=== PATIENT | female | born 1935 | race Caucasian/White ===

== ENCOUNTER 2019-11-24 20:24 | Inpatient (IN) | payer OTHER, BC ==
--- NOTE | 2019-11-24 20:32 | PDOC ---
History of Present Illness - General Stated Complaint: LETHARGIC - History of Present Illness Initial Comments: The pt is an 84F w/ a history of HTN and GERD who presents for evaluation of 1 day of aches, generalized weakness, s/p syncopal fall, pt was down for approximately 10-20 minutes. The pt currently reports epigastric abdominal bloating that has been persistent throughout the day today with associated nausea w/o vomiting. She denies ACE, vomiting, neck pain. Denies fevers, sick contacts, chest pain, trouble breathing, vision changes, changes in sensation, dysuria, or blood in her stool. Per the family at bedside, the pt is lethargic appearing and slow to answer relative to her baseline. 11/24/19 21:17 Past History - Past Medical History Allergies/Adverse Reactions: Allergies Allergy/AdvReac Type Severity Reaction Status Date / Time Penicillins Allergy Unknown Verified 11/24/19 22:00 meperidine HCl [From Demerol] AdvReac Unknown Verified 11/24/19 22:00 Home Medications: Ambulatory Orders Rosuvastatin [Crestor -] 20 mg PO Q48H #30 tablet 01/28/19 Amlodipine Besylate/Benazepril [Amlodipine-Benazepril 5-20 mg] 10 - 20 each PO DAILY 11/24/19 Fluticasone Propionate [Flovent Diskus] 50 mcg IH DAILY 11/24/19 Anemia: No Asthma: No Cancer: No Cardiac Disorders: No CVA: No COPD: No CHF: No Dementia: No Diabetes: No GI Disorders: Yes (GERD) Disorders: No HTN: Yes (NOT ON MEDICATION) Hypercholesterolemia: Yes Liver Disease: No Seizures: No Thyroid Disease: No - Surgical History Abdominal Surgery: No Appendectomy: No Cardiac Surgery: No Cholecystectomy: No Lung Surgery: No Neurologic Surgery: No Orthopedic Surgery: Yes (CARPAL TUNNEL RELEASE RIGHT HAND 2013) - Psycho Social/Smoking Cessation Hx Smoking Status: Yes Smoking History: Current every day smoker Number of Cigarettes Smoked Daily: 4 Hx Alcohol Use: Yes (WINE WITH DINNER) Drug/Substance Use Hx: No Substance Use Type: Alcohol Hx Substance Use Treatment: No Review of Systems - Review of Systems Able to Perform ROS?: Yes Comments:: GENERAL/CONSTITUTIONAL: +fatigue/generalized weakness HEAD, EYES, EARS, NOSE AND THROAT: No change in vision. No change in hearing. No sore throat CARDIOVASCULAR: No chest pain or shortness of breath RESPIRATORY: +cough; Denies hemoptysis GASTROINTESTINAL: +nausea; denies vomiting, diarrhea or constipation GENITOURINARY: No dysuria, frequency, or change in urination MUSCULOSKELETAL: +myalgias; No joint or pain. No neck or back pain SKIN: No rash NEUROLOGIC: No headache, vertigo, or change in strength/sensation ENDOCRINE: No increased thirst. No abnormal weight change HEMATOLOGIC/LYMPHATIC: No anemia, easy bleeding, or history of blood clots ALLERGIC/IMMUNOLOGIC: No hives or skin allergy 11/24/19 20:32 Is the patient limited Setswana proficient: No *Physical Exam - Vital Signs Initial Vital Signs Temp Pulse Resp BP Pulse Ox 96.4 F L 99 H 20 163/70 95 11/24/19 20:35 11/24/19 20:35 11/24/19 20:35 11/24/19 20:35 11/24/19 20:35 11/24/19 21:22 - Physical Exam GENERAL: Awake, alert, and oriented to person/place/time, tired appearing HEAD: No signs of trauma, normocephalic, atraumatic EYES: PERRLA, EOMI, sclera anicteric, conjunctiva clear ENT: Hearing grossly normal, nares patent, oropharynx clear without exudates. Moist mucosa LUNGS: No distress, speaks in full sentences, clear to auscultation bilaterally HEART: Regular rate and rhythm, normal S1 and S2, no murmurs appreciated, peripheral pulses normal and equal bilaterally ABDOMEN: Soft, epigastric TTP w/o rebound/guarding; normoactive bowel sounds EXTREMITIES: Normal inspection, Normal range of motion, no edema. No clubbing or cyanosis NEUROLOGICAL: Cranial nerves II through XII grossly intact. Normal speech, no focal sensorimotor deficits SKIN: Warm, diaphoretic 11/24/19 20:32 ED Treatment Course - LABORATORY CBC & Chemistry Diagram: 11/24/19 21:05 11/24/19 21:05 - RADIOLOGY Radiograph Interpretation: THIS IS A PRELIMINARY REPORT FROM [facility] [employer]PERATOR DATE OF SERVICE: 2019-11-24 22:31:06 EXAM: HEAD CT WITHOUT CONTRAST FINDINGS: There is no intra or extra-axial hemorrhage. Slightly hyperdense mass in the anterior paramedian right frontal lobe containing dystrophic calcifications measuring 2.2 x 2.4 cm axially and 2.5 cm in craniocaudal dimension with vasogenic edema in the frontal lobe deep white matter. This may be a meningioma. Suggest further evaluation with contrast- enhanced MRI No midline shift. Normal jones white matter differentiation. Mild prominence of the cortical sulci compatible with mild atrophy. The ventricles are not enlarged. There is mild effacement of the anterior horn of the right lateral ventricle The calvarium is intact Mucoperiosteal thickening in the maxillary sinuses with small bilateral retention cysts or polyps. The remaining visualized paranasal sinuses and mastoid air cells are clear. THIS IS A PRELIMINARY REPORT FROM [facility] [employer] OPERATOR DATE OF SERVICE: 2019-11-24 22:36:30 EXAM: ABDOMEN \T\ PELVIS CT WITH CONTR FINDINGS: There is a lobulated nodule in the right middle lobe measuring 1.5 cm concerning for malignancy. Fleischner Society guidelines advise 3 month follow-up CT and/or further evaluation with PET/CT or biopsy. There is moderate associated groundglass density extending toward the hilum Subsegmental and dependent atelectasis at the right lung base The heart is upper limits of normal size to mildly enlarged The liver is enlarged measuring 22 cm in craniocaudal dimension with mild fatty changes and more pronounced fatty infiltration in the left lobe along the fissure for the falciform ligament Multiple stones in the gallbladder fundus with thickening of the gallbladder wall. No obvious pericholecystic edema. Images are degraded by motion. Consider further evaluation with ultrasound The spleen, pancreas and right adrenal gland are unremarkable Left adrenal nodule measuring 2.2 cm. Attenuation measurements in the presence of contrast are not compatible with an adenoma. Consider further evaluation with MRI Mild hydronephrosis in the right kidney with no evidence of an obstructing ureteral stone Subcentimeter cortical hypodensity in the left kidney, likely a cyst Small umbilical hernia containing fat No bowel distention or appreciable thickening allowing for lack of enteric contrast. Normal appendix Colonic diverticulosis predominantly left colon without evidence of acute diverticulitis 1.9 cm left ovarian cyst as well as a slightly larger hypodense lesion, possibly cystic measuring 2.9 cm. Suggest further evaluation with ultrasound No intra-abdominal free air, free fluid or loculated collections Sclerotic lesion in the right femoral head may be a large bone island. Cannot exclude a blastic metastatic lesion in the setting of malignancy. Consider further evaluation with bone scan 11/24/19 23:06 THIS IS A PRELIMINARY REPORT FROM [employer] [employer] OPERATOR DATE OF SERVICE: 2019-11-25 01:12:27 EXAM: ABDOMEN US -LIMITED right upper quadrant and limited abdominal duplex FINDINGS: Right upper quadrant ultrasound: The liver is fatty and enlarged at 20.8 cm, without mass or biliary duct dilation. The gallbladder contained stones and there is wall thickening of the 6 mm. No pericholecystic fluid. Findings are moderately suspicious for cholecystitis.. The CBD is not dilated and measures4 millimeters in diameter. Right kidney measures 9.5centimeters in length and is unremarkable. The visualized aorta and IVC are normal. Pancreas is partially obscured, but appears normal. 11/25/19 03:09 Medical Decision Making - Medical Decision Making The pt is an 84F w/ a history of HTN and GERD who presents for evaluation of 1 day of aches, generalized weakness, s/p syncopal fall, pt was down for approximately 10-20 minutes. Ddx: syncope; influenza, sepsis, dehydration, intracranial pathology ED Course Labs sent Influenza ECG CXR CT head and c-spine Ofirmev, Zofran, and IVF for symptomatic relief 11/24/19 21:32 No leukocytosis No anemia Lytes unremarkable No SUSANNAH LFTs unremarkable Trop I neg UA w/ evidence of UTI Findings of CT scans discussed with patient Will obtain a RUQ US given gallbladder/liver findings Will treat with cipro/flagyl given CT findings and UTI Pt signed out to [facility] US w/ evidence of cholecysitis, consult order placed to Dr. Power and microblog sent to [facility] admitting with the update 11/25/19 03:10 Discharge - Discharge Information Problems reviewed: Yes Clinical Impression/Diagnosis: Cholecystitis UTI (urinary tract infection) Qualifiers: Urinary tract infection type: acute cystitis Hematuria presence: without hematuria Qualified Code(s): N30.00 - Acute cystitis without hematuria Syncope Qualifiers: Syncope type: unspecified Qualified Code(s): R55 - Syncope and collapse Condition: Fair - Admission Yes - Follow up/Referral - Patient Discharge Instructions - Post Discharge Activity
[2019-11-24] MEDS ORDERED: ACETAMINOPHEN 1000 MG/100 ML VIAL (NON FORMULARY) IVPB ONE (20:59)
[2019-11-24] MEDS ORDERED: ONDANSETRON 4 MG/2 ML VIAL IVPUSH ONE (20:59)
[2019-11-24] MEDS ORDERED: SODIUM CHLORIDE 0.9% 500 ML INFUS.BAG IV ONE (20:59)
[2019-11-24 21:05] VITALS: BMI 28.3
[2019-11-24 21:20] LABS: BASO % 0.9 % (0-2.0); EOS % 4.2 % (0-4.5); HEMATOCRIT 41.6 % (32.4-45.2); HEMOGLOBIN 14.2 GM/dL (10.7-15.3); LYMPH % 38.8 % (8-40); MCH 32.6 pg (25.7-33.7); MCHC 34.2 g/dl (32.0-36.0); MEAN CELL VOLUME 95.4 fl (80-96); MEAN PLT VOLUME 9.4 fl (7.5-11.1); NEUT % 47.1 % (42.8-82.8); PLATELET COUNT 267 K/MM3 (134-434); RBC 4.36 M/mm3 (3.60-5.2); RDW 13.8 % (11.6-15.6); WHITE BLOOD COUNT 7.3 K/mm3 (4.0-10.0)
[2019-11-24] MEDS ORDERED: ACETAMINOPHEN INJECTION 100 ML IVPB ONE (21:30)
[2019-11-24] MEDS ORDERED: ONDANSETRON 4 MG/2 ML VIAL ONE (21:30)
[2019-11-24 21:51] LABS: ALBUMIN 4.6 g/dl (3.4-5.0); ALK PHOS 79 U/L (45-117); ANION GAP 9 MMOL/L (8-16); BLOOD UREA NITROGEN 21.8 mg/dL (7-18); CALCIUM 9.4 mg/dL (8.5-10.1); CHLORIDE 105 mmol/L (98-107); CO2 25 mmol/L (21-32); CREATININE 0.8 mg/dL (0.55-1.3); GLUCOSE,RANDOM 160 mg/dL (74-106); POTASSIUM 3.5 mmol/L (3.5-5.1); SGOT/AST 32 U/L (15-37); SGPT/ALT 50 U/L (13-61); SODIUM 139 mmol/L (136-145); TOT PROT 7.2 g/dl (6.4-8.2)
[2019-11-24 22:25] LABS: VENOUS PC02 42.7 mmHg (38-52); VENOUS PH 7.37 (7.31-7.41)
[2019-11-24 22:27] LABS: VENOUS PO2 < 49 mmHg (28-48)
[2019-11-24 22:35] LABS: EPI CELLS 18.5 /HPF (0-5/HPF); HYALINE CASTS 95 /lpf (0-8); URINE APPEARANCE TURBID; URINE BACTERIA 1195.9 /hpf (NEGATIVE); URINE BILIRUBIN NEGATIVE (NEGATIVE); URINE COLOR YELLOW; URINE GLUCOSE (UA) NEGATIVE (NEGATIVE); URINE KETONE TRACE (NEGATIVE); URINE LEUK ESTERASE 2+ (NEGATIVE); URINE NITRITE NEGATIVE (NEGATIVE); URINE PROTEIN TRACE (NEGATIVE); URINE RBC 4 /hpf (0-4); URINE UROBILINOGEN 0.2 mg/dL (0.2-1.0); URINE WBC 121 /hpf (0-5)
[2019-11-24] MEDS ORDERED: CIPROFLOXACIN 400 MG/D5W 400 MG/200 ML IVPB IVPB ONE (23:16)
--- NOTE | 2019-11-25 00:58 | PDOC ---
Attending Attestation - Resident Resident Name: Sylvester Olsen - ED Attending Attestation I have performed the following: I have examined & evaluated the patient, The case was reviewed & discussed with the resident, I agree w/resident's findings & plan, Exceptions are as noted - HPI HPI: 11/25/19 00:54 84 years old with past medical history significant hypertension GERD presents with 1 day generalized weakness nausea epigastric discomfort complicated by syncopal episode while walking now complaining of epigastric discomfort - Physicial Exam PE: 11/25/19 00:55 Vitals: Triage Vital signs reviewed General Appearance: No acute distress, well nourished well developed, Head: Atraumatic, Cardiac: Regular rate and rhythym, no murmurs, no rubs, no gallops, Lungs: Clear to auscultation bilateral, good air movement bilaterally, Abdomen: Soft, non distended, normal bowel sounds, epigastric/left upper quadrant tenderness to palpation no rebound no guarding Extremities: Full range of motion to all extremities, no cyanosis, clubbing, or edema Skin: Warm and dry, no rashes or lesions, no rash, no petechiae Psych: Normal mood, normal affect - Medical Decision Making 11/25/19 00:56 84 years old with syncopal episode abdominal discomfort syncope most likely secondary to vagal reaction given prodrome of nausea epigastric discomfort dizziness lightheadedness just prior to the episode however given age and comorbidities will check labs EKG troponin CAT scan head abdomen given discomfort observe and reassess CT head demonstrates meningioma with small amount of vasogenic edema will need MRI follow-up CT abdomen pelvis demonstrates possible malignancy in the lower lung There is thickening of the gallbladder wall we will follow-up with a ultrasound patient covered with antibiotics Patient will be admitted to medicine for further evaluation.
--- NOTE | 2019-11-25 02:05 | HP ---
Admitting History and Physical - Primary Care Physician PCP: Emily Contreras - Admission Chief Complaint: Generalized Weakness, s/p Fall, Epigastric Pain History of Present Illness: This is a 84 y/o woman with a PMHx of HTN, HLD, GERD. Who presents to the ED with syncope, s/p fall, generalized weakness, and epigastric pain. Patient was found on the floor by her son. Family reported to ED resident that the patient is lethargic and slow to answer- not at baseline. During my interview, patient is alert and oriented x3, reports while going to the bathroom, she became lightheaded and dizzy and fell. ?LOC. She reports that her son found her on the floor. Patient reports not feeling like herself earlier in the day which she attributes to her fibromyalgia. Patient reports having urinary frequency, burning and intermittent chills. Patient denies fever, cough, SOB, CP, palpitations, V/D, hematochezia, melena, hematuria. Patient denies recent travel or sick contacts. History Source: Patient, Family Member Limitations to Obtaining History: No Limitations - Past Medical History Cardiovascular: Yes: HTN, Hyperlipdemia Gastrointestinal: Yes: GERD - Past Surgical History Additional Past Surgical History: Carpal Tunnel- R- wrist - Smoking History Smoking history: Current every day smoker Aproximately how many cigarettes per day: 4 - Alcohol/Substance Use Hx Alcohol Use: Yes (WINE WITH DINNER) History of Substance Use: reports: None - Social History Usual Living Arrangement: Yes: With Child ADL: Independent History of Recent Travel: No Home Medications - Allergies Allergies/Adverse Reactions: Allergies Allergy/AdvReac Type Severity Reaction Status Date / Time Penicillins Allergy Unknown Verified 11/24/19 22:00 meperidine HCl [From Demerol] AdvReac Unknown Verified 11/24/19 22:00 - Home Medications Home Medications: Ambulatory Orders Rosuvastatin [Crestor -] 20 mg PO Q48H #30 tablet 01/28/19 Amlodipine Besylate/Benazepril [Amlodipine-Benazepril 5-20 mg] 10 - 20 each PO DAILY 11/24/19 Fluticasone Propionate [Flovent Diskus] 50 mcg IH DAILY 11/24/19 Family Medical History Family Hx Cancer: Sister (Brain, 2nd Sister- Stomach) Family Hx Diabetes: Mother, Son Review of Systems - Review of Systems Constitutional: reports: Chills, Weakness Eyes: reports: Floaters HENT: reports: No Symptoms Neck: reports: No Symptoms Cardiovascular: reports: No Symptoms Respiratory: reports: No Symptoms Gastrointestinal: reports: Indigestion, Nausea Genitourinary: reports: Dysuria, Frequency Breasts: reports: No Symptoms Reported Musculoskeletal: reports: Back Pain Integumentary: reports: No Symptoms Neurological: reports: Dizziness, Syncope, Unsteady Gait, Weakness Endocrine: reports: No Symptoms Hematology/Lymphatic: reports: No Symptoms Psychiatric: reports: No Symptoms Pain Intensity: 4 Physical Examination Vital Signs: Vital Signs Temperature 96.4 F L 11/24/19 20:35 Pulse Rate 99 H 11/24/19 20:35 Respiratory Rate 11/24/19 20:35 Blood Pressure 163/70 11/24/19 20:35 O2 Sat by Pulse Oximetry (%) 95 11/24/19 20:35 Constitutional: Yes: Well Nourished, No Distress, Calm Eyes: Yes: WNL, Conjunctiva Clear, EOM Intact, PERRL HENT: Yes: WNL, Atraumatic, Normocephalic Neck: Yes: WNL, Supple, Trachea Midline Cardiovascular: Yes: Regular Rate and Rhythm, S1, S2 Respiratory: Yes: WNL, Regular, CTA Bilaterally Gastrointestinal: Yes: Normal Bowel Sounds, Soft, Tenderness, Tenderness, Epigastrium ...Rectal Exam: Yes: WNL Renal/: Yes: WNL Breast(s): Yes: WNL Musculoskeletal: Yes: Back Pain Extremities: Yes: WNL Edema: Yes Edema: RLE: Trace (right ankle) Peripheral Pulses WNL: Yes Neurological: Yes: Alert, Oriented, Cran Nerves II-XII Intact ...Motor Strength: WNL Psychiatric: Yes: WNL, Alert, Oriented Labs: CBC, BMP 11/24/19 21:05 11/24/19 21:05 Laboratory Results - last 24 hr 11/24/19 11/24/19 11/24/19 21:05 21:05 21:14 WBC 7.3 RBC 4.36 Hgb 14.2 Hct 41.6 MCV 95.4 MCH 32.6 MCHC 34.2 RDW 13.8 Plt Count 267 MPV 9.4 Absolute Neuts (auto) 3.4 Neutrophils % 47.1 Lymphocytes % 38.8 Monocytes % 9.0 Eosinophils % 4.2 Basophils % 0.9 Nucleated RBC % 0 VBG pH POC VBG pCO2 POC VBG pO2 VBG HCO3 VBG O2 Sat (Edwar) VBG Base Excess Sodium 139 Potassium 3.5 Chloride 105 Carbon Dioxide 25 Anion Gap 9 BUN 21.8 H Creatinine 0.8 Est GFR (CKD-EPI)AfAm 78.47 Est GFR (CKD-EPI)NonAf 67.70 POC Glucometer 140 Random Glucose 160 H Lactic Acid Calcium 9.4 Total Bilirubin 1.0 AST 32 ALT 50 Alkaline Phosphatase 79 Troponin I < 0.02 Total Protein 7.2 Albumin 4.6 Urine Color Urine Appearance Urine pH Ur Specific Monroe Urine Protein Urine Glucose (UA) Urine Ketones Urine Blood Urine Nitrite Urine Bilirubin Urine Urobilinogen Ur Leukocyte Esterase Urine WBC (Auto) Urine RBC (Auto) Urine Casts (Auto) U Pathogenic Cast Auto U Epithel Cells (Auto) Urine Bacteria (Auto) Influenza A (Rapid) Influenza B (Rapid) 11/24/19 11/24/19 11/24/19 21:20 21:20 21:45 WBC RBC Hgb Hct MCV MCH MCHC RDW Plt Count MPV Absolute Neuts (auto) Neutrophils % Lymphocytes % Monocytes % Eosinophils % Basophils % Nucleated RBC % VBG pH POC VBG pCO2 POC VBG pO2 VBG HCO3 VBG O2 Sat (Edwar) VBG Base Excess Sodium Potassium Chloride Carbon Dioxide Anion Gap BUN Creatinine Est GFR (CKD-EPI)AfAm Est GFR (CKD-EPI)NonAf POC Glucometer Random Glucose Lactic Acid 1.8 Calcium Total Bilirubin AST ALT Alkaline Phosphatase Troponin I Total Protein Albumin Urine Color Yellow Urine Appearance Turbid Urine pH 5.0 Ur Specific [place] 1.025 Urine Protein Trace Urine Glucose (UA) Negative Urine Ketones Trace H Urine Blood Negative Urine Nitrite Negative Urine Bilirubin Negative Urine Urobilinogen 0.2 Ur Leukocyte Esterase 2+ H Urine WBC (Auto) 121 Urine RBC (Auto) 4 Urine Casts (Auto) 95 U Pathogenic Cast Auto None seen U Epithel Cells (Auto) 18.5 Urine Bacteria (Auto) 1195.9 Influenza A (Rapid) Negative Influenza B (Rapid) Negative 11/24/19 22:17 WBC RBC Hgb Hct MCV MCH MCHC RDW Plt Count MPV Absolute Neuts (auto) Neutrophils % Lymphocytes % Monocytes % Eosinophils % Basophils % Nucleated RBC % VBG pH 7.37 POC VBG pCO2 42.7 POC VBG pO2 < 49 H VBG HCO3 24.3 VBG O2 Sat (Edwar) 74.0 VBG Base Excess -0.5 Sodium Potassium Chloride Carbon Dioxide Anion Gap BUN Creatinine Est GFR (CKD-EPI)AfAm Est GFR (CKD-EPI)NonAf POC Glucometer Random Glucose Lactic Acid Calcium Total Bilirubin AST ALT Alkaline Phosphatase Troponin I Total Protein Albumin Urine Color Urine Appearance Urine pH Ur Specific Monroe Urine Protein Urine Glucose (UA) Urine Ketones Urine Blood Urine Nitrite Urine Bilirubin Urine Urobilinogen Ur Leukocyte Esterase Urine WBC (Auto) Urine RBC (Auto) Urine Casts (Auto) U Pathogenic Cast Auto U Epithel Cells (Auto) Urine Bacteria (Auto) Influenza A (Rapid) Influenza B (Rapid) Imaging - Results Chest X-ray: Image Reviewed X-ray: Image Reviewed Cat Scan: Report Reviewed, Image Reviewed Ultrasound: Image Reviewed EKG: Image Reviewed Problem List - Problems (1) Syncope Assessment/Plan: Likely secondary to Arrhythmia vs Malignancy Head CT- no hemorrhage, ?meningoma Continue cardiac monitoring Carotid Doppler-pending Echo in am Appreciate Cardiology consult Appreciate Neurology consult Serial enzymes EKG- SR AV Block, possible anterior infarct age undetermined Neuro checks Orthostatics Code(s): R55 - SYNCOPE AND COLLAPSE Qualifiers: Syncope type: unspecified Qualified Code(s): R55 - Syncope and collapse (2) Status post fall Assessment/Plan: see above CT spine- neg fx Bedrest Fall precautions Code(s): Z91.81 - HISTORY OF FALLING (3) Generalized weakness Assessment/Plan: Likely secondary to UTI Head CT- reviewed Appreciate Neuro consult Neurochecks Monitor CBC, BMP Monitor vitals Fall precautions Code(s): R53.1 - WEAKNESS (4) Cholecystitis Assessment/Plan: CTAP report- lobulated nodule RML 1.5cm ?malignancy, atelectasis right lung base , cholelithasis, GB wall thickening RUQ US report- fatty liver, hepatomegaly 20.8cm without mass or biliary duct dilatation, cholelithiasis, GB wall thickening 6mm, CBD not dilated- 4mm Cipro, Flagyl given in ED, will continue Appreciate Surgical consult NPO Gentle IVF Monitor CBC, BMP Monitor vitals Code(s): K81.9 - CHOLECYSTITIS, UNSPECIFIED (5) Epigastric abdominal pain Assessment/Plan: see above Code(s): R10.13 - EPIGASTRIC PAIN (6) UTI (urinary tract infection) Assessment/Plan: UA-+2 leukocyte esterase, WBC 121, Bacteria 1195 Urine culture-pending PCN allergy Continue Cipro Monitor CBC, BMP Monitor vitals ` ` Code(s): N39.0 - URINARY TRACT INFECTION, SITE NOT SPECIFIED Qualifiers: Urinary tract infection type: acute cystitis Hematuria presence: without hematuria Qualified Code(s): N30.00 - Acute cystitis without hematuria (7) HTN (hypertension) Assessment/Plan: stable Monitor BP Continue home med Monitor renal function' Code(s): I10 - ESSENTIAL (PRIMARY) HYPERTENSION (8) HLD (hyperlipidemia) Assessment/Plan: stable Hold med secondary to ?Cholecystitis Code(s): E78.5 - HYPERLIPIDEMIA, UNSPECIFIED (9) GERD (gastroesophageal reflux disease) Assessment/Plan: stable Continue PPI Code(s): K21.9 - GASTRO-ESOPHAGEAL REFLUX DISEASE WITHOUT ESOPHAGITIS Assessment/Plan This is a 84 y/o woman with a PMHx of HTN, HLD, GERD. Admitted to Telemetry for Syncope, s/p Fall, Generalized Weakness, Epigastric Pain, UTI for further evaluation of their emergent condition. Plan: See Problem List FEN D51/2NS@42ml/hr Replete lytes prn NPO DVT ppx OOB SCDs Heparin SQ Dispo: Requires Inpatient Care Visit type - Emergency Visit Emergency Visit: Yes ED Registration Date: 11/24/19 Care time: The patient presented to the Emergency Department on the above date and was hospitalized for further evaluation of their emergent condition. - New Patient This patient is new to me today: Yes Date on this admission: 11/24/19 - Critical Care Critical Care patient: No
[2019-11-25] MEDS: DEXTROSE 5%-0.45% SALINE 1,000 ML IV SCH (03:31)
[2019-11-25 07:10] LABS: BASO % 0.3 % (0-2.0); EOS % 0.3 % (0-4.5); HEMATOCRIT 37.6 % (32.4-45.2); HEMOGLOBIN 12.8 GM/dL (10.7-15.3); LYMPH % 6.8 % (8-40); MCH 32.4 pg (25.7-33.7); MEAN PLT VOLUME 9.3 fl (7.5-11.1); MONO % 7.2 % (3.8-10.2); NEUT % 85.4 % (42.8-82.8); PLATELET COUNT 230 K/MM3 (134-434); RBC 3.95 M/mm3 (3.60-5.2); RDW 13.7 % (11.6-15.6); WHITE BLOOD COUNT 9.8 K/mm3 (4.0-10.0)
[2019-11-25 07:52] LABS: ANION GAP 8 MMOL/L (8-16); BLOOD UREA NITROGEN 14.8 mg/dL (7-18); CALCIUM 8.7 mg/dL (8.5-10.1); CHLORIDE 109 mmol/L (98-107); CHOLESTEROL 183 mg/dL (50-200); CO2 24 mmol/L (21-32); CREATININE 0.7 mg/dL (0.55-1.3); GLUCOSE,RANDOM 117 mg/dL (74-106); HDL CHOLESTEROL 62 mg/dL (40-60); LDL CHOLESTEROL (ONLY SJRH) 114 mg/dL (5-100); MAGNESIUM 2.1 mg/dL (1.8-2.4); POTASSIUM 3.9 mmol/L (3.5-5.1); SODIUM 141 mmol/L (136-145); TRIGLYCERIDES 85 mg/dL (0-150)
--- NOTE | 2019-11-25 08:19 | PN ---
Teaching Attending Note Name of Resident: Stanislav Ernandez ATTENDING PHYSICIAN STATEMENT I saw and evaluated the patient. I reviewed the resident's note and discussed the case with the resident. I agree with the resident's findings and plan as documented. SUBJECTIVE: PATIENT IS FEELING BETTER WITH NO ACUTE DISTRESS. NO ABDOMINAL PAIN AT THIS TIME. OBJECTIVE: Vital Signs Temperature 98.4 F 11/25/19 04:32 Pulse Rate 84 11/25/19 04:32 Respiratory Rate 20 11/25/19 04:32 Blood Pressure 141/68 11/25/19 04:32 O2 Sat by Pulse Oximetry (%) 98 11/25/19 04:40 GENERAL: The patient is awake, alert, and fully oriented, in no acute distress. HEAD: Normal with no signs of trauma. EYES: PERRL, extraocular movements intact, sclera anicteric, conjunctiva clear. ENT: Ears normal, oropharynx clear without exudates, moist mucous membranes. NECK: Trachea midline, full range of motion, supple. LUNGS: Breath sounds equal, clear to auscultation bilaterally, no wheezes, no crackles, no accessory muscle use. HEART: Regular rate and rhythm, S1, S2 without murmur, rub or gallop. ABDOMEN: Soft, nontender, nondistended, normoactive bowel sounds, no guarding, no rebound, no hepatosplenomegaly, no masses. EXTREMITIES: 2+ pulses, warm, well-perfused, no edema. NEUROLOGICAL: Cranial nerves II through XII grossly intact. Normal speech, gait not observed. PSYCH: Normal mood, normal affect. SKIN: Warm, dry, normal turgor, no rashes or lesions noted CBCD WBC 9.8 K/mm3 (4.0-10.0) 11/25/19 06:33 RBC 3.95 M/mm3 (3.60-5.2) 11/25/19 06:33 Hgb 12.8 GM/dL (10.7-15.3) 11/25/19 06:33 Hct 37.6 % (32.4-45.2) 11/25/19 06:33 MCV 95.0 fl (80-96) 11/25/19 06:33 MCHC 34.0 g/dl (32.0-36.0) 11/25/19 06:33 RDW 13.7 % (11.6-15.6) 11/25/19 06:33 Plt Count 230 K/MM3 (134-434) 11/25/19 06:33 MPV 9.3 fl (7.5-11.1) 11/25/19 06:33 CMP Sodium 141 mmol/L (136-145) 11/25/19 06:33 Potassium 3.9 mmol/L (3.5-5.1) 11/25/19 06:33 Chloride 109 mmol/L (98-107) H 11/25/19 06:33 Carbon Dioxide 24 mmol/L (21-32) 11/25/19 06:33 Anion Gap 8 MMOL/L (8-16) 11/25/19 06:33 BUN 14.8 mg/dL (7-18) 11/25/19 06:33 Creatinine 0.7 mg/dL (0.55-1.3) 11/25/19 06:33 Random Glucose 117 mg/dL (74-106) H 11/25/19 06:33 Calcium 8.7 mg/dL (8.5-10.1) 11/25/19 06:33 Total Bilirubin 1.0 mg/dL (0.2-1) 11/24/19 21:05 AST 32 U/L (15-37) 11/24/19 21:05 ALT 50 U/L (13-61) 11/24/19 21:05 Alkaline Phosphatase 79 U/L (45-117) 11/24/19 21:05 Total Protein 7.2 g/dl (6.4-8.2) 11/24/19 21:05 Albumin 4.6 g/dl (3.4-5.0) 11/24/19 21:05 CARDIAC ENZYMES Troponin I < 0.02 ng/ml (0.00-0.05) 11/25/19 06:33 Current Medications Generic Name Dose Route Start Last Admin Trade Name Freq PRN Reason Stop Dose Admin Dextrose/Sodium Chloride 1,000 mls @ 42 mls/hr 11/25/19 00:30 11/25/19 03:31 D5-1/2ns - IV 42 mls/hr ASDIR DENIS Administration Metronidazole 500 mg in 100 mls @ 100 mls/hr 11/25/19 10:00 Flagyl 500mg Premixed Ivpb - IVPB Q8H-IV DENIS Levofloxacin 500 mg in 100 mls @ 100 mls/hr 11/25/19 10:00 Levaquin 500 Mg Premixed Ivpb - IVPB DAILY [facility] Home Medications Medication Instructions Recorded Rosuvastatin [Crestor -] 20 mg PO Q48H #30 tablet 01/28/19 Amlodipine Besylate/Benazepril 10 - 20 each PO DAILY 11/24/19 [Amlodipine-Benazepril 5-20 mg] Fluticasone Propionate [Flovent 50 mcg IH DAILY 11/24/19 Diskus] Urine Test Results Urine Color Yellow 11/24/19 21:45 Urine Appearance Turbid 11/24/19 21:45 Urine pH 5.0 (5.0-8.0) 11/24/19 21:45 Ur Specific [place] 1.025 (1.010-1.035) 11/24/19 21:45 Urine Protein Trace (NEGATIVE) 11/24/19 21:45 Urine Glucose (UA) Negative (NEGATIVE) 11/24/19 21:45 Urine Ketones Trace (NEGATIVE) H 11/24/19 21:45 Urine Blood Negative (NEGATIVE) 11/24/19 21:45 Urine Nitrite Negative (NEGATIVE) 11/24/19 21:45 Urine Bilirubin Negative (NEGATIVE) 11/24/19 21:45 Ur Leukocyte Esterase 2+ (NEGATIVE) H 11/24/19 21:45 ASSESSMENT AND PLAN: Patient is an 84yof with a PMHx of HTN, HLD, GERD. Who presents to the ED with syncope, s/p fall, generalized weakness, and epigastric pain. 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
--- NOTE | 2019-11-25 09:27 | CONSULT ---
- Consultation REQUESTING PROVIDER: CONSULT REQUEST: We have been asked to surgically evaluate this patient for cholelithiasis. PCP:Urvashi Cabrera HISTORY OF PRESENT ILLNESS: 84 y/o F w/ PMHx HTN, HLD, GERD admitted for syncope workup. Pt reports not feeling well yesterday, when she got up from the couch to go to the restroom she became dizzy and syncopized. Does not believe she hit her head however states she was home alone at the time and was found by her son. Pt found to have UTI. General surgery consulted for Ct/Us findings of cholelithiasis/cholecystitis. Pt reports she has a long history of abdominal pain and h/o gastric ulcer/H Pylori diagnosed on egd a few years ago by Dr Wilder. Denies any ruq pain with eating. Denies any knowledge of GB disease/ stones. Denies cp/sob, n/v/d. PMHx: as above PSHx: Carpal Tunnel- R- wrist Home Medications Medication Instructions Recorded Rosuvastatin [Crestor -] 20 mg PO Q48H #30 tablet 01/28/19 Amlodipine Besylate/Benazepril 10 - 20 each PO DAILY 11/24/19 [Amlodipine-Benazepril 5-20 mg] Fluticasone Propionate [Flovent 50 mcg IH DAILY 11/24/19 Diskus] Allergies Allergy/AdvReac Type Severity Reaction Status Date / Time Penicillins Allergy Unknown Verified 11/24/19 22:00 meperidine HCl [From Demerol] AdvReac Unknown Verified 11/24/19 22:00 REVIEW OF SYSTEMS: CONSTITUTIONAL: Absent: fever, chills CARDIOVASCULAR: Absent: chest pain RESPIRATORY: Absent: cough, shortness of breath GASTROINTESTINAL: Absent: abdominal pain PHYSICAL EXAM: GENERAL: Awake, alert, and fully oriented, in no acute distress. HEAD: Normal with no signs of trauma. LUNGS: No accessory muscle use. ABDOMEN: Soft, nontender, not distended, normoactive bowel sounds, no guarding, no rebound. Vital Signs Temperature 98.6 F 11/25/19 08:53 Pulse Rate 91 H 11/25/19 08:53 Respiratory Rate 20 11/25/19 08:53 Blood Pressure 142/71 11/25/19 08:53 O2 Sat by Pulse Oximetry (%) 98 11/25/19 04:40 Lab Results WBC 9.8 K/mm3 (4.0-10.0) 11/25/19 06:33 RBC 3.95 M/mm3 (3.60-5.2) 11/25/19 06:33 Hgb 12.8 GM/dL (10.7-15.3) 11/25/19 06:33 Hct 37.6 % (32.4-45.2) 11/25/19 06:33 MCV 95.0 fl (80-96) 11/25/19 06:33 MCHC 34.0 g/dl (32.0-36.0) 11/25/19 06:33 RDW 13.7 % (11.6-15.6) 11/25/19 06:33 Plt Count 230 K/MM3 (134-434) 11/25/19 06:33 Sodium 141 mmol/L (136-145) 11/25/19 06:33 Potassium 3.9 mmol/L (3.5-5.1) 11/25/19 06:33 Chloride 109 mmol/L (98-107) H 11/25/19 06:33 Carbon Dioxide 24 mmol/L (21-32) 11/25/19 06:33 Anion Gap 8 MMOL/L (8-16) 11/25/19 06:33 BUN 14.8 mg/dL (7-18) 11/25/19 06:33 Creatinine 0.7 mg/dL (0.55-1.3) 11/25/19 06:33 Random Glucose 117 mg/dL (74-106) H 11/25/19 06:33 Calcium 8.7 mg/dL (8.5-10.1) 11/25/19 06:33 A/P: 84 y/o F w/ PMHx HTN, HLD, GERD admitted for syncope workup. Pt reports not feeling well yesterday, when she got up from the couch to go to the restroom she became dizzy and syncopized. Does not believe she hit her head however states she was home alone at the time and was found by her son. Pt found to have UTI. General surgery consulted for Ct/Us findings of cholelithiasis/cholecystitis. Pt reports she has a long history of abdominal pain and h/o gastric ulcer/H Pylori diagnosed on egd a few years ago by Dr Wilder. Denies any ruq pain with eating. Denies any knowledge of GB disease/ stones. Denies cp/sob, n/v/d. Hida scan pending, will follow up D/w attending Dr Power
--- NOTE | 2019-11-25 09:48 | CON.CARD ---
Consult Consult Specialty:: CV - History of Present Illness Chief Complaint: fall vs syncope History of Present Illness: 84 y/o woman here with syncope finished eating spaghetti dinner around 6 pm, not large/heavy meal. 1 glass of wine = her usual routine. less water intake yest during the day than usual--about one 16 oz bottle. did not skip lunch. spent almost all day sitting on couch. around 7pm got up to go get water in kitchen--standing at sink felt very dizzy/ LH and very nauseated--went to walk to bathroom and found herself on the floor in the hallway. son had just come in the house and was calling to her. does not recall the fall or impact with floor. denies new neuro deficits including focal numb/weakness. no palpitations, cp, sob associated. no flushing/heat that she can recall. no incontinence. never happened to her before. in [place] currently no h/o CV dz ER: moderately hypertensive-->140s mildly prerenal on labs. trop neg x 3 normal temp curve, normal WBC and lactate. UTI dirty, culture pending CT/sono findings c/w cholelithiasis/cholecystitis--surgery consulting PMH: HTN, HLD, GERD, fibromyalgia - Past Medical History Cardio/Vascular: Yes: HTN, Hyperlipdemia Gastrointestinal: Yes: GERD ...: No - Alcohol/Substance Use Hx Alcohol Use: Yes (WINE WITH DINNER) History of Substance Use: reports: None - Smoking History Smoking history: Current every day smoker Aproximately how many cigarettes per day: 4 - Social History ADL: Independent History of Recent Travel: No Home Medications - Allergies Allergies/Adverse Reactions: Allergies Allergy/AdvReac Type Severity Reaction Status Date / Time Penicillins Allergy Unknown Verified 11/24/19 22:00 meperidine HCl [From Demerol] AdvReac Unknown Verified 11/24/19 22:00 - Home Medications Home Medications: Ambulatory Orders Rosuvastatin [Crestor -] 20 mg PO Q48H #30 tablet 01/28/19 Amlodipine Besylate/Benazepril [Amlodipine-Benazepril 5-20 mg] 10 - 20 each PO DAILY 11/24/19 Fluticasone Propionate [Flovent Diskus] 50 mcg IH DAILY 11/24/19 Family Medical History Family History: Denies (no known cmp) Review of Systems - Review of Systems Constitutional: denies: Chills, Fever Eyes: denies: Eye Pain HENT: denies: Nasal Congestion Neck: denies: Stiffness Cardiovascular: denies: Palpitations Respiratory: denies: Orthopnea, PND Gastrointestinal: denies: Diarrhea, Rectal Bleeding Genitourinary: denies: Burning, Hematuria Musculoskeletal: denies: Muscle Pain Integumentary: denies: Rash Neurological: denies: Numbness, Seizure, Unsteady Gait Endocrine: denies: Excessive Sweating Hematology/Lymphatic: denies: Excessive Bleeding Vital Signs: Vital Signs Temperature 98.6 F 11/25/19 08:53 Pulse Rate 91 H 11/25/19 08:53 Respiratory Rate 11/25/19 08:53 Blood Pressure 142/71 11/25/19 08:53 O2 Sat by Pulse Oximetry (%) 98 11/25/19 04:40 Constitutional: Yes: Well Nourished, No Distress Eyes: No: Sclera Icterus HENT: No: Nasal Congestion Neck: No: Decreased ROM Respiratory: Yes: CTA Bilaterally. No: Accessory Muscle Use, Rales, Wheezes Gastrointestinal: Yes: Normal Bowel Sounds. No: Distention, Hepatomegaly, Palpable Mass, Tenderness Cardiovascular: Yes: Regular Rate and Rhythm JVD: No Carotid Bruit: No PMI: Non-Displaced Heart Sounds: Yes: S1, S2. No: Gallop Murmur: No: Systolic Murmur, Diastolic Murmur Musculoskeletal: Yes: Other (No kyphosis) Extremities: No: Cool, Cyanosis Edema: No Peripheral Pulses: 2+ Left Carotid, 2+ Right Carotid, 2+ Left Doralis Pedis, 2+ Right Dorsalis Pedis Integumentary: No: Jaundice Neurological: Yes: Alert, Oriented (x3) Psychiatric: No: Agitated - Other Data Labs, Other Data: CBC, BMP 11/25/19 06:33 11/25/19 06:33 Troponin, BNP 11/24/19 11/25/19 11/25/19 21:05 03:30 06:33 Troponin I < 0.02 < 0.02 < 0.02 Troponin, BNP 11/24/19 11/25/19 11/25/19 21:05 03:30 06:33 Troponin I < 0.02 < 0.02 < 0.02 Assessment/Plan ECG: NSR, normal intervals/axis. ? old AWMI. no ST-Ts. no old tracing CXR: clear lungs/pleura CT head: report pending tele: NSR, WNL presyncope/fall vs syncope: -suspect orthostatic hypo vs vagal, precipitated by prolonged seating-->rising, in elderly pt with suboptimal PO intake. possibly exacerbated by post-prandial splanchnic vasodilation causing decreased cardiac return. (intense nausea with LH prodrome likely c/w vagal sx's). -no clinical features suggest sz or malignant arrhythmia -check echo, cont to monitor tele -check orthostatics -no angina type sx's, trop neg x 3. non-acute ecg--no need for ischemia eval HTN: -bp controlled -cont home meds -check orthostatics HPL: -cont home meds
--- NOTE | 2019-11-25 10:05 | EKG ---
Test Reason : Blood Pressure : / mmHG Vent. Rate : 086 BPM Atrial Rate : 086 BPM P-R Int : 222 ms QRS Dur : 076 ms QT Int : 384 ms P-R-T Axes : 032 -02 042 degrees QTc Int : 459 ms SINUS RHYTHM WITH 1ST DEGREE A-V BLOCK POSSIBLE ANTERIOR INFARCT , AGE UNDETERMINED ABNORMAL ECG NO PREVIOUS ECGS AVAILABLE Confirmed by JING NIEVES MD ([id number]) on 11/25/2019 10:04:59 AM Referred By: Confirmed By:JING NIEVES MD
--- NOTE | 2019-11-25 11:50 | ECHO ---
Name: STEFF MARTINEZ Exam:Adult Echocardiogram Study Date: 11/25/2019 10:58 AM Age: 84 yrs Reason For Study: syncope Height: 63 in Weight: 165 lb BSA: 1.8 m2 MMode/2D Measurements & Calculations IVSd: 0.85 cm Ao root diam: 3.7 cm LVIDd: 4.3 cm LA dimension: 3.9 cm LVIDs: 2.4 cm ACS: 1.9 cm LVPWd: 0.97 cm IVSs: 1.3 cm LVPWs: 1.0 cm EDV(Teich): 81.9 ml ESV(Teich): 20.6 ml Doppler Measurements & Calculations MV E max davon: 87.9 cm/sec Ao V2 max: 141.2 cm/sec MV A max davon: 115.5 cm/sec Ao max P.0 mmHg MV E/A: 0.76 Ao V2 mean: 101.9 cm/sec Ao mean P.4 mmHg Ao V2 VTI: 28.7 cm TR max davon: 199.5 cm/sec Med Peak E' Davon: 9.8 cm/sec TR max P.9 mmHg Med E/e': 9.0 Lat Peak E' Davon: 7.6 cm/sec Lat E/e': 11.6 Procedure A complete two-dimensional transthoracic echocardiogram was performed (2D, M-mode, Doppler and color flow Doppler). Technically limited study. Left Ventricle The left ventricle is normal in size. Left ventricular systolic function is normal. Ejection Fraction = >70%. No regional wall motion abnormalities noted. Right Ventricle The right ventricle is normal size. The right ventricular systolic function is normal. Atria The left atrial size is normal. Right atrial size is normal. Mitral Valve There is mild mitral annular calcification. There is no mitral regurgitation noted. Tricuspid Valve The tricuspid valve is normal in structure and function. No tricuspid regurgitation. Aortic Valve There is mild aortic sclerosis.;. Trace to mild aortic regurgitation. Pulmonic Valve The pulmonic valve is not well visualized. Mild pulmonic valvular regurgitation. Great Vessels The aortic root is normal size. Pericardium/Pleura There is no pericardial effusion. Interpretation Summary Technically limited study The left ventricle is normal in size. Left ventricular systolic function is normal. No regional wall motion abnormalities noted. Ejection Fraction = >70%. The right ventricular systolic function is normal. The left atrial size is normal. Right atrial size is normal. There is mild mitral annular calcification. Trace to mild aortic regurgitation. There is mild aortic sclerosis. Mild pulmonic valvular regurgitation. There is no pericardial effusion. Berry Elliott MD 11/25/2019 11:49 AM
[2019-11-25] MEDS ORDERED: CIPROFLOXACIN 400 MG/D5W 400 MG/200 ML IVPB IVPB SCH (14:00)
--- NOTE | 2019-11-25 15:13 | PN ---
Progress Note (short form) - Note Progress Note: ID consult dictated imp/reccd 84 yo female admitted with syncope found to have abnl GB with stones and question of cholycystitis, head ct with ? meningioma- MRI reccd, ct with RML lung mass- r/o malignancy pen allergy but has had keflex before plan for HIDA scan today if negative can d/c antibiotics other collins will switch to rocephin/flagyl Problem List - Problems (1) Syncope Code(s): R55 - SYNCOPE AND COLLAPSE Qualifiers: Syncope type: unspecified Qualified Code(s): R55 - Syncope and collapse (2) Cholecystitis Code(s): K81.9 - CHOLECYSTITIS, UNSPECIFIED (3) Lung mass Code(s): R91.8 - OTHER NONSPECIFIC ABNORMAL FINDING OF LUNG FIELD
--- NOTE | 2019-11-25 16:39 | PN ---
Physical Exam: SUBJECTIVE: Patient seen and examined at bedside. She offers no complaints today and would like to have coffee but NPO for HIDA today. Denies ACE, numbness/ tingling, vision changes, SOB and CP. OBJECTIVE: Vital Signs Period Temp Pulse Resp BP Sys/Willis Pulse Ox Last 24 Hr 96.4 F-98.6 F 75-104 20-20 135-163/60-72 95-98 GENERAL: The patient is awake, alert, and fully oriented, in no acute distress. HEAD: Normal with no signs of trauma. EYES: PERRL, extraocular movements intact, sclera anicteric, conjunctiva clear. No ptosis. ENT: Ears normal, nares patent, oropharynx clear without exudates, moist mucous membranes. NECK: Trachea midline, full range of motion, supple. LUNGS: Breath sounds equal, clear to auscultation bilaterally, no wheezes, no crackles, no accessory muscle use. HEART: Regular rate and rhythm, S1, S2 without murmur, rub or gallop. ABDOMEN: Soft, nontender, nondistended, normoactive bowel sounds, no guarding, no rebound, no hepatosplenomegaly, no masses. EXTREMITIES: 2+ pulses, warm, well-perfused, no edema. NEUROLOGICAL: Cranial nerves II through XII grossly intact. Normal speech, gait not observed. PSYCH: Normal mood, normal affect. SKIN: Warm, dry, normal turgor, no rashes or lesions noted Laboratory Results - last 24 hr 11/24/19 11/24/19 11/24/19 21:05 21:05 21:14 WBC 7.3 RBC 4.36 Hgb 14.2 Hct 41.6 MCV 95.4 MCH 32.6 MCHC 34.2 RDW 13.8 Plt Count 267 MPV 9.4 Absolute Neuts (auto) 3.4 Neutrophils % 47.1 Lymphocytes % 38.8 Monocytes % 9.0 Eosinophils % 4.2 Basophils % 0.9 Nucleated RBC % 0 VBG pH POC VBG pCO2 POC VBG pO2 VBG HCO3 VBG O2 Sat (Edwar) VBG Base Excess Sodium 139 Potassium 3.5 Chloride 105 Carbon Dioxide 25 Anion Gap 9 BUN 21.8 H Creatinine 0.8 Est GFR (CKD-EPI)AfAm 78.47 Est GFR (CKD-EPI)NonAf 67.70 POC Glucometer 140 Random Glucose 160 H Hemoglobin A1c % Lactic Acid Calcium 9.4 Phosphorus Magnesium Total Bilirubin 1.0 AST 32 ALT 50 Alkaline Phosphatase 79 Troponin I < 0.02 Total Protein 7.2 Albumin 4.6 Triglycerides Cholesterol Total LDL Cholesterol HDL Cholesterol TSH Urine Color Urine Appearance Urine pH Ur Specific [place] Urine Protein Urine Glucose (UA) Urine Ketones Urine Blood Urine Nitrite Urine Bilirubin Urine Urobilinogen Ur Leukocyte Esterase Urine WBC (Auto) Urine RBC (Auto) Urine Casts (Auto) U Pathogenic Cast Auto U Epithel Cells (Auto) Urine Bacteria (Auto) Influenza A (Rapid) Influenza B (Rapid) 11/24/19 11/24/19 11/24/19 21:20 21:20 21:45 WBC RBC Hgb Hct MCV MCH MCHC RDW Plt Count MPV Absolute Neuts (auto) Neutrophils % Lymphocytes % Monocytes % Eosinophils % Basophils % Nucleated RBC % VBG pH POC VBG pCO2 POC VBG pO2 VBG HCO3 VBG O2 Sat (Edwar) VBG Base Excess Sodium Potassium Chloride Carbon Dioxide Anion Gap BUN Creatinine Est GFR (CKD-EPI)AfAm Est GFR (CKD-EPI)NonAf POC Glucometer Random Glucose Hemoglobin A1c % Lactic Acid 1.8 Calcium Phosphorus Magnesium Total Bilirubin AST ALT Alkaline Phosphatase Troponin I Total Protein Albumin Triglycerides Cholesterol Total LDL Cholesterol HDL Cholesterol TSH Urine Color Yellow Urine Appearance Turbid Urine pH 5.0 Ur Specific [place] 1.025 Urine Protein Trace Urine Glucose (UA) Negative Urine Ketones Trace H Urine Blood Negative Urine Nitrite Negative Urine Bilirubin Negative Urine Urobilinogen 0.2 Ur Leukocyte Esterase 2+ H Urine WBC (Auto) 121 Urine RBC (Auto) 4 Urine Casts (Auto) 95 U Pathogenic Cast Auto None seen U Epithel Cells (Auto) 18.5 Urine Bacteria (Auto) 1195.9 Influenza A (Rapid) Negative Influenza B (Rapid) Negative 11/24/19 11/25/19 11/25/19 22:17 03:30 06:33 WBC 9.8 RBC 3.95 Hgb 12.8 Hct 37.6 MCV 95.0 MCH 32.4 MCHC 34.0 RDW 13.7 Plt Count 230 MPV 9.3 Absolute Neuts (auto) 8.3 H Neutrophils % 85.4 H D Lymphocytes % 6.8 L D Monocytes % 7.2 Eosinophils % 0.3 D Basophils % 0.3 Nucleated RBC % 0 VBG pH 7.37 POC VBG pCO2 42.7 POC VBG pO2 < 49 H VBG HCO3 24.3 VBG O2 Sat (Edwar) 74.0 VBG Base Excess -0.5 Sodium Potassium Chloride Carbon Dioxide Anion Gap BUN Creatinine Est GFR (CKD-EPI)AfAm Est GFR (CKD-EPI)NonAf POC Glucometer Random Glucose Hemoglobin A1c % Lactic Acid Calcium Phosphorus Magnesium Total Bilirubin AST ALT Alkaline Phosphatase Troponin I < 0.02 Total Protein Albumin Triglycerides Cholesterol Total LDL Cholesterol HDL Cholesterol TSH Urine Color Urine Appearance Urine pH Ur Specific [place] Urine Protein Urine Glucose (UA) Urine Ketones Urine Blood Urine Nitrite Urine Bilirubin Urine Urobilinogen Ur Leukocyte Esterase Urine WBC (Auto) Urine RBC (Auto) Urine Casts (Auto) U Pathogenic Cast Auto U Epithel Cells (Auto) Urine Bacteria (Auto) Influenza A (Rapid) Influenza B (Rapid) 11/25/19 11/25/19 06:33 06:33 WBC RBC Hgb Hct MCV MCH MCHC RDW Plt Count MPV Absolute Neuts (auto) Neutrophils % Lymphocytes % Monocytes % Eosinophils % Basophils % Nucleated RBC % VBG pH POC VBG pCO2 POC VBG pO2 VBG HCO3 VBG O2 Sat ([place]war) VBG Base Excess Sodium 141 Potassium 3.9 Chloride 109 H Carbon Dioxide 24 Anion Gap 8 BUN 14.8 Creatinine 0.7 Est GFR (CKD-EPI)AfAm 92.21 Est GFR (CKD-EPI)NonAf 79.56 POC Glucometer Random Glucose 117 H Hemoglobin A1c % 5.3 Lactic Acid Calcium 8.7 Phosphorus 3.0 Magnesium 2.1 Total Bilirubin AST ALT Alkaline Phosphatase Troponin I < 0.02 Total Protein Albumin Triglycerides 85 Cholesterol 183 Total LDL Cholesterol 114 H HDL Cholesterol 62 H TSH 2.55 Urine Color Urine Appearance Urine pH Ur Specific [place] Urine Protein Urine Glucose (UA) Urine Ketones Urine Blood Urine Nitrite Urine Bilirubin Urine Urobilinogen Ur Leukocyte Esterase Urine WBC (Auto) Urine RBC (Auto) Urine Casts (Auto) U Pathogenic Cast Auto U Epithel Cells (Auto) Urine Bacteria (Auto) Influenza A (Rapid) Influenza B (Rapid) Active Medications Dextrose/Sodium Chloride (D5-1/2ns -) 1,000 mls @ 42 mls/hr IV ASDIR DENIS Last Admin: 11/25/19 03:31 Dose: 42 mls/hr Metronidazole (Flagyl 500mg Premixed Ivpb -) 500 mg in 100 mls @ 100 mls/hr IVPB Q8H-IV DENIS Last Admin: 11/25/19 11:41 Dose: 100 mls/hr Ceftriaxone Sodium 1 gm/ (Dextrose) 50 mls @ 200 mls/hr IVPB DAILY DENIS; Protocol Head ct with ?meningioma- MRI reccd, ct with RML lung mass- r/o malignancy IMAGING CAROTID DOPP: Mild intimal thickening at the common carotid bifurcation, bilaterally with minimal plaque buildup on the LEFT and w/o evidence of hemodynamically significant stenosis, BL. ASSESSMENT/PLAN: 84 y/o female PMH HTN, HLD, and polymyalgia rheumatica brought in 2/2 unwitnessed fall at home and admitted to w/u syncope. Imaging demonstrated abnl GB with stones and poss cholycystitis; for HIDA today. Dopp as above. # Syncope - Echo NEG - CAROTID DOPP: Mild intimal thickening at the common carotid bifurcation, bilaterally with minimal plaque buildup on the LEFT and w/o evidence of hemodynamically significant stenosis, BL. - Moderately hypertensive; systolic 140s - Trop neg x 3 - Cardiology consulted: Suspect orthostatic hypo vs vagal, precipitated by prolonged seating-->rising, in elderly pt with suboptimal PO intake. Possibly exacerbated by post-prandial splanchnic vasodilation causing decreased cardiac return. (intense nausea with LH prodrome likely c/w vagal sx's). No clinical features suggest sz or malignant arrhythmia. No angina type sx's, trop neg x 3. non-acute ecg--no need for ischemia eval - Cont continuous cardiac monitoring - Orthostatics NEG # Cholecystitis - CT/sono findings c/w cholelithiasis/cholecystitis - Consult surgery - ID consulted - If HIDA negative can d/c antibiotics other collins will switch to rocephin/flagyl # UTI - Asymptomatic - UA: 2+ LE, trace ketones - Was administered cipro, flagyl in ED - IVF # Polymyalgia rhematica - Gabapentin 300 mg PO BID # HTN - Cont. curent home regimen: Amlodepine/benazepril 10/20 mg PO QD # HLD - Cont. curent home regimen: Rosuvastatin 20 mg q48h PO HS # F/E/N - NS - Cont. to monitor - low sodium, low cholesterol/fat diet # DVT prophylaxis - Heparin SQ # Disposition - Admit to telemetry Stanislav Ernandez MD Visit type - Emergency Visit Emergency Visit: No - New Patient This patient is new to me today: No - Critical Care Critical Care patient: No ATTENDING PHYSICIAN STATEMENT I saw and evaluated the patient. I reviewed the resident's note and discussed the case with the resident. I agree with the resident's findings and plan as documented. SUBJECTIVE: OBJECTIVE: ASSESSMENT AND PLAN:
--- NOTE | 2019-11-25 16:59 | CONS ---
DATE OF CONSULTATION: REQUESTING PHYSICIAN: Dr. Contreras DATE OF DICTATION: 11/25/2019 HISTORY: This is an 84-year-old who was admitted with syncope at home. She was sitting on her couch yesterday and then she got up. She felt dizzy. She thought she was feeling nauseous, so she decided she would go to the bathroom. She fell in front of the bathroom door where her son found her. He was gone for about 15 minutes. She denies any fevers, chills, any nausea, vomiting. She notes that she has had some chronic abdominal discomfort for which she takes Prilosec occasionally prior to meals. She has had no incontinence. This has never happened before. PAST MEDICAL HISTORY: Notable for hypertension, hyperlipidemia, and GERD. She has been treated for H. pylori in the past as well with Dr. Wilder. Her PCP used to be Dr. Esparza. PAST SURGICAL HISTORY: Notable for hemorrhoidectomy. As well she has had carpal tunnel surgery in the past. SOCIAL HISTORY: She lives with her son and daughter. She smokes 5-6 cigarettes every night. She has some wine with dinner. There is no history of any other substance use. There is no history of any recent travel. ALLERGIES: She is allergic to PENICILLIN and DEMEROL. There is a note from 2012 where she was discharged on Keflex, which on further questioning the patient recalls and had no difficulties with. Her PENICILLIN allergy is remote, and she does not recall the side effects. MEDICATIONS: At home include Crestor, amlodipine, benazepril, and Flovent Diskus. FAMILY HISTORY: Notable for brain cancer and stomach cancer in her sisters. Mother and son with diabetes. REVIEW OF SYSTEMS: She denies any fevers or chills. She has, otherwise, been feeling well. She does not really recall any loss in weight, and she has had no nausea or vomiting. She does report her appetite may be a little diminished. PHYSICAL EXAMINATION: General: She is awake and alert. Vital Signs: She is afebrile. Temperature is 98.3. She has had no fever since admission. Pulse is 78, blood pressure is 148/67, respiratory rate is 20. She is saturating 96% on room air. HEENT: She is normocephalic. Her eyes are anicteric. Neck: Supple. I do not feel any adenopathy. She has no thrush or pharyngitis. Lungs: Clear to auscultation. Heart: Regular rate and rhythm. Abdomen: Soft. She has some midepigastric discomfort. She has no right upper quadrant pain. She has no suprapubic or CVA tenderness. Extremities: Without edema. DIAGNOSTIC DATA: White count is 9.8, hemoglobin 12.8, platelets are 230. Her chemistries; her BUN 14, creatinine 0.7. Her LFTs are normal. Cultures are pending. She has had multiple imaging studies including a head and cervical spine CT on admission. Apparently, she has a prior meningioma. She has had a CT of the cervical neck, which shows multilevel degenerative disk disease and some sclerotic changes in her vertebral column. She had a CT of her abdomen and pelvis, which were notable for a 2.2-cm left adrenal nodule. She has a lung mass in the right middle lobe and a sclerotic region in the right femoral head and gallstones in the gallbladder with thickening and hyperemia of the gallbladder wall. She had an ultrasound of the gallbladder was notable for cholelithiasis with contracted thick walled gallbladder, hepatomegaly with diffuse infiltration of the liver. In summary, this is an 84-year-old woman admitted with: 1. A syncopal event. Question of cholecystitis has been raised, but she is relatively asymptomatic. HIDA scan has been ordered. She has been started on Levaquin and Flagyl, which given her PENICILLIN allergy I think we could continue but with low threshold to continue if the HIDA scan is normal. 2. She has an abnormal head CT with possible meningioma. 3. She has a possible right middle lobe lung mass that will need further evaluation. 4. PENICILLIN allergy. She appears to have tolerated cephalosporins as an outpatient. If she needs to continue antibiotics, would suggest we switch her to ceftriaxone and Flagyl. She was given Levaquin this morning. We will discontinue and order ceftriaxone for tomorrow. If the HIDA scan is negative, can stop her antibiotics. NOÉ SAMSON M.D. [id number] [facility]
--- NOTE | 2019-11-25 18:01 | CONSULT ---
Consult - text type - Consultation Consultation Note: NEUROLOGY CONSULTATION is greatly appreciated: This 84 yo RH woman loves with her son and his . A second son is . PMH sig for HTN, Chol, COPD, episodic headaches and "fibromyalgia." Maintained on: Rosuvastatin 20 mg; Amlodipine Besylate/Benazepril 10/ 20; Fluticasone; and gabapentin. Episodic, throbbing, occipital headaches approx 1-2/week. No Nausea, photophobia or associated symptoms. Aches and pains in the arms and legs interrupt for many years. Pt has been feeling unwell with weakness, lethargy, epigastric pain x few days. Yesterday, after resting on the couch she arose to ambulate to the bathroom when she became dizzy, lightheaded, felt increased weakness and "passed out." Found on floor, conscious, by son. -incontinence, No head trauma. In ER Urine WBC= 121. 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 No bruits. Cor reg. BD=198/70. Coarse facies NEURO: Awake, alert, cooperative. MS/Speech: Normal CN II-XII: normal without Nystagmus. gag normal Motor: no drift. Normal strength, Cogwheel rigidity (R>L) increased by reinforcement. Decreased LEOPOLDO's. Normal reflexes except AJ's. Toes downgoing Coord: No FTN dysaxia Sensory: Sl. Reduced vibration. Romberg +/- Gait: shuffling. Unsteady. IMP: 1. Nonfocal neuro exam sig for early exrapyramidal features and shuffling gait, 2. Syncope vs. fall. Cannot fully exclude seizure with unwitnessed event. 3. Right frontal mengioma 4. Will worsen with toxic-metbolic encephalopathy (UTI). SUGGEST: Continue antibiotics and hydration. Continue telemetry. Check orthostatic BP's. PT for gait eval and Rx. Neuro f/u for extrapyramidal features and meningioma (would repeat CT in 3-4 months to compare). No specific Rx at this time. Out patient EEG Endocrine consultation for thyroid. TFT's Thank you very much, Murphy Mata MD
[2019-11-25] MEDS: GABAPENTIN 300 MG CAPSULE (FP) PO SCH (21:44)
[2019-11-25] MEDS ORDERED: ROSUVASTATIN CA 20 MG TABLET (FP) PO SCH (22:00)
[2019-11-26] MEDS: DEXTROSE 5%-0.45% SALINE 1,000 ML IV SCH (05:59)
[2019-11-26 06:22] LABS: HEMATOCRIT 34.9 % (32.4-45.2); MCH 32.7 pg (25.7-33.7); MCHC 34.4 g/dl (32.0-36.0); MEAN CELL VOLUME 94.9 fl (80-96); MEAN PLT VOLUME 9.3 fl (7.5-11.1); PLATELET COUNT 193 K/MM3 (134-434); RBC 3.67 M/mm3 (3.60-5.2); RDW 13.7 % (11.6-15.6); WHITE BLOOD COUNT 6.7 K/mm3 (4.0-10.0)
[2019-11-26 06:57] LABS: ALBUMIN 3.4 g/dl (3.4-5.0); BILIRUBIN,TOTAL 1.1 mg/dL (0.2-1); BLOOD UREA NITROGEN 9.4 mg/dL (7-18); CALCIUM 8.5 mg/dL (8.5-10.1); CREATININE 0.7 mg/dL (0.55-1.3); MAGNESIUM 2.1 mg/dL (1.8-2.4); PHOSPHOROUS 2.8 mg/dL (2.5-4.9); POTASSIUM 3.7 mmol/L (3.5-5.1); TOT PROT 5.9 g/dl (6.4-8.2)
--- NOTE | 2019-11-26 08:11 | PN ---
Teaching Attending Note Name of Resident: Stanislav Ernandez ATTENDING PHYSICIAN STATEMENT I saw and evaluated the patient. I reviewed the resident's note and discussed the case with the resident. I agree with the resident's findings and plan as documented. SUBJECTIVE: Patient feels comfortable has no symptoms, the only complain she has right ankle swelling, and unable to step on it. Vital Signs Temperature 98.0 F 11/26/19 05:00 Pulse Rate 90 11/26/19 05:00 Respiratory Rate 16 11/26/19 05:00 Blood Pressure 116/84 11/26/19 05:00 O2 Sat by Pulse Oximetry (%) 96 11/25/19 21:00 GENERAL: The patient is awake, alert, and fully oriented, in no acute distress. HEAD: Normal with no signs of trauma. EYES: PERRL, extraocular movements intact, sclera anicteric, conjunctiva clear. ENT: Ears normal, oropharynx clear without exudates, moist mucous membranes. NECK: good rom, full range of motion, supple. LUNGS: decreased BS BL otherwise clear to auscultation , no wheezes, no crackles , no accessory muscle use. HEART: Regular rate and rhythm, S1, S2 without murmur, rub or gallop. ABDOMEN: Soft, nontender, nondistended, normoactive bowel sounds, no guarding, no rebound, no hepatosplenomegaly, no masses. EXTREMITIES: 2+ pulses, warm, well-perfused, RIGHT ANKLE SWELLING POSITIVE +. decreased ROM NEUROLOGICAL: Cranial nerves II through XII grossly intact. Normal speech, gait not observed. PSYCH: Normal mood, normal affect. SKIN: Warm, dry, normal turgor, no rashes or lesions noted CBCD WBC 6.7 K/mm3 (4.0-10.0) 11/26/19 05:40 RBC 3.67 M/mm3 (3.60-5.2) 11/26/19 05:40 Hgb 12.0 GM/dL (10.7-15.3) 11/26/19 05:40 Hct 34.9 % (32.4-45.2) 11/26/19 05:40 MCV 94.9 fl (80-96) 11/26/19 05:40 MCHC 34.4 g/dl (32.0-36.0) 11/26/19 05:40 RDW 13.7 % (11.6-15.6) 11/26/19 05:40 Plt Count 193 K/MM3 (134-434) 11/26/19 05:40 MPV 9.3 fl (7.5-11.1) 11/26/19 05:40 CMP Sodium 140 mmol/L (136-145) 11/26/19 05:40 Potassium 3.7 mmol/L (3.5-5.1) 11/26/19 05:40 Chloride 108 mmol/L (98-107) H 11/26/19 05:40 Carbon Dioxide 26 mmol/L (21-32) 11/26/19 05:40 Anion Gap 6 MMOL/L (8-16) L 11/26/19 05:40 BUN 9.4 mg/dL (7-18) 11/26/19 05:40 Creatinine 0.7 mg/dL (0.55-1.3) 11/26/19 05:40 Random Glucose 114 mg/dL (74-106) H 11/26/19 05:40 Calcium 8.5 mg/dL (8.5-10.1) 11/26/19 05:40 Total Bilirubin 1.1 mg/dL (0.2-1) H 11/26/19 05:40 AST 22 U/L (15-37) 11/26/19 05:40 ALT 34 U/L (13-61) 11/26/19 05:40 Alkaline Phosphatase 63 U/L (45-117) 11/26/19 05:40 Total Protein 5.9 g/dl (6.4-8.2) L 11/26/19 05:40 Albumin 3.4 g/dl (3.4-5.0) 11/26/19 05:40 CARDIAC ENZYMES Troponin I < 0.02 ng/ml (0.00-0.05) 11/25/19 06:33 Current Medications Generic Name Dose Route Start Last Admin Trade Name Freq PRN Reason Stop Dose Admin Amlodipine Besylate 5 mg 11/26/19 10:00 Norvasc - PO DAILY DENIS Gabapentin 300 mg 11/25/19 22:00 11/25/19 21:44 Neurontin - PO 300 mg BID DENIS Administration Dextrose/Sodium Chloride 1,000 mls @ 42 mls/hr 11/25/19 00:30 11/26/19 05:59 D5-1/2ns - IV 42 mls/hr ASDIR DENIS Administration Ceftriaxone Sodium 1 gm/ 50 mls @ 200 mls/hr 11/26/19 10:00 Dextrose IVPB DAILY [facility] Protocol Lisinopril 20 mg 11/26/19 10:00 Prinivil PO DAILY DENIS Rosuvastatin Calcium 20 mg 11/25/19 22:00 11/25/19 21:44 Crestor - PO 20 mg Q2D@2200 DENIS Administration Home Medications Medication Instructions Recorded Rosuvastatin [Crestor -] 20 mg PO Q48H #30 tablet 01/28/19 Amlodipine Besylate/Benazepril 10 - 20 each PO DAILY 11/24/19 [Amlodipine-Benazepril 5-20 mg] Fluticasone Propionate [Flovent 50 mcg IH DAILY 11/24/19 Diskus] Urine Test Results Urine Color Yellow 11/24/19 21:45 Urine Appearance Turbid 11/24/19 21:45 Urine pH 5.0 (5.0-8.0) 11/24/19 21:45 Ur Specific [place] 1.025 (1.010-1.035) 11/24/19 21:45 Urine Protein Trace (NEGATIVE) 11/24/19 21:45 Urine Glucose (UA) Negative (NEGATIVE) 11/24/19 21:45 Urine Ketones Trace (NEGATIVE) H 11/24/19 21:45 Urine Blood Negative (NEGATIVE) 11/24/19 21:45 Urine Nitrite Negative (NEGATIVE) 11/24/19 21:45 Urine Bilirubin Negative (NEGATIVE) 11/24/19 21:45 Ur Leukocyte Esterase 2+ (NEGATIVE) H 11/24/19 21:45 CT of head (reviewed): Mild diffuse atrophy, scattered microvascular changes and a 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 Who presents to the ED with syncope, s/p fall, generalized weakness, and epigastric pain. #RML mass, malignancy cannot be excluded. PET/CT or percutaneous needle bx recommended, will get oncology consult as an outpatient. #Right ankle swelling s/p fall: positive for fracture; will consult ortho for further care and recommendations. #Syncope: duplex of carotids ;mild minimal thickening at the common carotid bifurcation, bl with minimally plaque build up on the left without any evidence of stenosis. neuro evaluTION appreciated Ct scan as above. #Meningioma with right frontal edema. #chest pain , 2 sets OF trops negative , no further chest pain. 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
[2019-11-26] MEDS ORDERED: cefTRIAXone SODIUM 1 GM VIAL ONE (09:12)
[2019-11-26] MEDS ORDERED: DEXTROSE 5%-WATER - 50 ML IVPB ONE (09:12)
[2019-11-26] MEDS: amLODIPine BESYLATE 5 MG TABLET (FP) PO SCH (09:15)
[2019-11-26] MEDS: GABAPENTIN 300 MG CAPSULE (FP) PO SCH ×2 (09:15→21:03)
[2019-11-26] MEDS: LISINOPRIL 20 MG TABLET (FP) PO SCH (09:15)
[2019-11-26] MEDS: ACETAMINOPHEN 325 MG TABLET (FP) PO PRN (09:34)
[2019-11-26] MEDS ORDERED: PATIENT'S OWN MEDICATION (NON-FORMULARY) (Amlodipine Besylate/Benazepril [Amlodipine-Benaz PO SCH (10:00)
[2019-11-26] MEDS ORDERED: CEFTRIAXONE 1 GM in DEXTROSE 5%-WATER - 50 ML IVPB SCH (10:00)
--- NOTE | 2019-11-26 10:23 | CONSULT ---
Admitting History and Physical - Primary Care Physician PCP: Urvashi Cabrera - Admission History of Present Illness: Per EMR- 84yof with a PMHx of HTN, HLD, GERD. Who presents to the ED with syncope, s/p fall, generalized weakness, and epigastric pain. 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 Selected Entries 11/25/19 11/25/19 11/25/19 04:32 08:53 13:57 Breakfast Diet Tolerated Supper Temperature 98.4 F 98.6 F 98.3 F 11/25/19 11/25/19 11/25/19 17:00 21:00 23:12 Breakfast Diet Tolerated Supper 75% Temperature 98 F 98.4 F 11/26/19 11/26/19 11/26/19 01:51 05:00 09:00 Breakfast Diet Tolerated Supper Temperature 99.0 F 98.0 F 98.1 F 11/26/19 10:03 Breakfast 75% Diet Tolerated Well Supper Temperature Laboratory Tests 11/25/19 11/26/19 06:33 05:40 WBC 9.8 6.7 History Source: Patient Limitations to Obtaining History: No Limitations - Past Medical History Cardiovascular: Yes: HTN, Hyperlipdemia Gastrointestinal: Yes: GERD ...: No - Past Surgical History Additional Past Surgical History: Carpal Tunnel- R- wrist - Smoking History Smoking history: Current every day smoker Aproximately how many cigarettes per day: 4 - Alcohol/Substance Use Hx Alcohol Use: Yes (WINE WITH DINNER) History of Substance Use: reports: None - Social History ADL: Independent History of Recent Travel: No History - Admission Reason For Visit: URINARY TRACT INFECTION, SYNCOPE, THICKENING - Diagnostics CT Scan: Report Reviewed - General Mental Status: Alert and Oriented, Awake and Alert, Able to Follow Commands Attention: Intact Ability to Follow Directions: Excellent Head/Neck Control: WFL - Hearing Hearing: Normal Speech Evaluation - Communication Primary Language: MAURITIAN Communication: Yes: Within Normal Limits Oral Expression Ability: Yes: No Impairment - Speech Production Able to Make Needs Known: Yes: WNL Intelligibility: Yes: WNL - Speech Characteristics Voice Loudness: Normal Voice Pitch: Yes: Normal Voice Phonatory-based Quality: Yes: Normal Speech Pattern: Normal Speech Clarity: < 100% Nasal Resonance: Normal Articulation: Yes: Precise Rate of Speech: Intact - Language/Auditory Comprehension Follows: Yes: 2 Stage Simple Commands - Language/Verbal Expression Able to Respond to Simple Queries: Yes: WNL Able to Communicate Wants and Needs: Yes: WNL Functional Communication Status: Yes: WNL - Memory/Perception FDC Memory: Yes: WNL Short Term Memory: Yes: WNL - Swallow Evaluation/Bedside Assessment Current Nutritional Intake: Regular, Thin Liquids Oral Secretions: Yes: WFL Dentition: Yes: Adequate Facial Symmetry at Rest: Symmetrical Facial Symmetry on Retraction: Symmetrical Facial Movement: Controlled Sensation: Normal Against Resistance Opening: Normal Against Resistance Closing: Normal Pucker Lips: Normal Smile: Normal Lingual Movement: Normal, Symmetric Lingual Speed of Movement: Normal Lingual Movement Strgth Against Opposition: Normal Lingual Movement Characteristics: Normal Velopharyngeal Movement: Normal Laryngeal Elevation: WFL Laryngeal Movement: Able to Palpate Rate of Intake: WFL Bolus Size: WFL Labial Seal: WFL Chewing: WFL Oral Prep Time: WFL A-P Transit: WFL Pocketing: None Timing of Swallow: WFL Coughing/Throat Clear: No Change in Voice: No Recommendations - Speech Evaluation, Impression/Plan Impression: Speech,swallow,cognition,language intact. - Dysphagia Impressions/Plan Swallowing Skills: WF Dysphagia Impressions: No Impairment *Silent aspiration: cannot be R/O at bedside - Recommendations Diet Consistency: Regular Medication Administration: Whole with water Liquids: Thin Liquids
--- NOTE | 2019-11-26 11:12 | PN ---
Progress Note (short form) - Note Progress Note: s: no chest pain, palps, dizziness, dyspnea Current Medications Acetaminophen (Tylenol -) 650 mg PO Q6H PRN PRN Reason: Fever Or Pain Last Admin: 11/26/19 09:34 Dose: 650 mg Amlodipine Besylate (Norvasc -) 5 mg PO DAILY [facility] Last Admin: 11/26/19 09:15 Dose: 5 mg Gabapentin (Neurontin -) 300 mg PO BID [facility] Last Admin: 11/26/19 09:15 Dose: 300 mg Dextrose/Sodium Chloride (D5-1/2ns -) 1,000 mls @ 42 mls/hr IV ASDIR [facility] Last Admin: 11/26/19 05:59 Dose: 42 mls/hr Ceftriaxone Sodium 1 gm/ (Dextrose) 50 mls @ 200 mls/hr IVPB DAILY [facility]; Protocol Last Admin: 11/26/19 09:15 Dose: 200 mls/hr Lisinopril (Prinivil) 20 mg PO DAILY [facility] Last Admin: 11/26/19 09:15 Dose: 20 mg Rosuvastatin Calcium (Crestor -) 20 mg PO Q2D@2200 [facility] Last Admin: 11/25/19 21:44 Dose: 20 mg Vital Signs Period Temp Pulse Resp BP Sys/Willis Pulse Ox Last 24 Hr 98 F-99.0 F 73-90 16-20 116-148/57-84 96 Constitutional: Yes: Well Nourished, No Distress Eyes: No: Sclera Icterus HENT: No: Nasal Congestion Neck: No: Decreased ROM Respiratory: Yes: CTA Bilaterally. No: Accessory Muscle Use, Rales, Wheezes Gastrointestinal: Yes: Normal Bowel Sounds. No: Distention, Hepatomegaly, Palpable Mass, Tenderness Cardiovascular: Yes: Regular Rate and Rhythm JVD: No Carotid Bruit: No PMI: Non-Displaced Heart Sounds: Yes: S1, S2. No: Gallop Murmur: No: Systolic Murmur, Diastolic Murmur Musculoskeletal: Yes: Other (No kyphosis) Extremities: No: Cool, Cyanosis Edema: No Peripheral Pulses: 2+ Left Carotid, 2+ Right Carotid, 2+ Left Doralis Pedis, 2+ Right Dorsalis Pedis Integumentary: No: Jaundice Neurological: Yes: Alert, Oriented (x3) Psychiatric: No: Agitated Assessment/Plan ECG: NSR, normal intervals/axis. ? old AWMI. no ST-Ts. no old tracing CXR: clear lungs/pleura CT head: report pending echo 11/2019 nl LV/RV function, mild AR, mild aortic sclerosis tele: NSR, WNL presyncope/fall vs syncope: -suspect orthostatic hypo vs vagal, precipitated by prolonged seating-->rising, in elderly pt with suboptimal PO intake. possibly exacerbated by post-prandial splanchnic vasodilation causing decreased cardiac return. (intense nausea with LH prodrome likely c/w vagal sx's). -no clinical features suggest sz or malignant arrhythmia - echo unremarkable - tele benign - orthostatics negative, echo unremarkable -no angina type sx's, trop neg x 3. non-acute ecg--no need for ischemia eval HTN: -bp controlled -cont home meds -check orthostatics HPL: -cont home meds
[2019-11-26] MEDS ORDERED: IBUPROFEN 600 MG TABLET (FP) PO ONE (14:02)
--- NOTE | 2019-11-26 15:04 | CON.PULM ---
Consult Consult Specialty:: PULM/CCM Referred by:: Hospitalist Reason for Consultation:: abnormal CT / lung mass - History of Present Illness Chief Complaint: S/P Fall History of Present Illness: 84 F, long time 1/2 PPD smoker, HTN, HLD, and GERD. She denies previous acute exacerbations of her breathing. Has never required inhalational medications. No previous PFTs. Does not recall any previous CT chest imaging. Admitted via the ER due to syncope, generalized weakness, and epigastric pain. She apparently had AMS. She is currently awake and alert. She does not have any specific respiratory complaints. CT: 1.8 x 1.2 x 0.9 cm RML irregular, spiculated mass with surrounding ground glass / 2.2 cm Left adrenal nodule - History Source History Provided By: Patient Limitations to Obtaining History: No Limitations - Past Medical History Cardio/Vascular: Yes: HTN, Hyperlipdemia Pulmonary: Yes: Bronchitis. No: Asthma, Cancer, COPD, O2 Dependent, Pneumonia, Previously Intubated, Pulmonary Embolus, Pulmonary Fibrosis, Sleep Apnea Gastrointestinal: Yes: GERD ...: No - Alcohol/Substance Use Hx Alcohol Use: Yes (WINE WITH DINNER) History of Substance Use: reports: None - Smoking History Smoking history: Current every day smoker Aproximately how many cigarettes per day: 4 - Social History ADL: Independent History of Recent Travel: No Home Medications - Allergies Allergies/Adverse Reactions: Allergies Allergy/AdvReac Type Severity Reaction Status Date / Time Penicillins Allergy Unknown Verified 11/24/19 22:00 meperidine HCl [From Demerol] AdvReac Unknown Verified 11/24/19 22:00 - Home Medications Home Medications: Ambulatory Orders Rosuvastatin [Crestor -] 20 mg PO Q48H #30 tablet 01/28/19 Amlodipine Besylate/Benazepril [Amlodipine-Benazepril 5-20 mg] 10 - 20 each PO DAILY 11/24/19 Fluticasone Propionate [Flovent Diskus] 50 mcg IH DAILY 11/24/19 Gabapentin 300 mg PO BID 11/25/19 Review of Systems - Review of Systems Constitutional: reports: Lethargy, Malaise. denies: Chills, Fever, Loss of Appetite, Night Sweats Eyes: reports: No Symptoms HENT: reports: No Symptoms Neck: reports: No Symptoms Cardiovascular: denies: Chest Pain, Edema, Palpitations, Shortness of Breath Respiratory: reports: Cough. denies: Hemoptysis, Orthopnea, PND, Snoring, SOB, SOB on Exertion, Wheezing Gastrointestinal: reports: Abdominal Pain, Nausea Genitourinary: reports: No Symptoms Breasts: reports: No Symptoms Reported Musculoskeletal: reports: Extremity Pain, Muscle Pain, Muscle Cramps Integumentary: reports: No Symptoms Neurological: reports: Change in LOC, Confusion Endocrine: reports: No Symptoms Hematology/Lymphatic: reports: No Symptoms Psychiatric: reports: No Symptoms Physical Exam Vital Sings: Vital Signs Temperature 98.3 F 11/26/19 13:00 Pulse Rate 83 11/26/19 09:00 Respiratory Rate 18 11/26/19 13:00 Blood Pressure 143/70 11/26/19 13:00 O2 Sat by Pulse Oximetry (%) 96 11/26/19 10:00 Constitutional: Yes: No Distress, Calm Eyes: Yes: Conjunctiva Clear, EOM Intact HENT: Yes: Atraumatic, Normocephalic Neck: Yes: Supple, Trachea Midline Cardiovascular: Yes: Regular Rate and Rhythm Respiratory: Yes: Cough, Diminished. No: Accessory Muscle Use, Rales, Rhonchi, SOB, SOB on Exertion, Stridor, Tachypnea, Wheezes ...Inspection: Yes: WNL ...Clubbing: No Gastrointestinal: Yes: Normal Bowel Sounds, Soft, Abdomen, Obese Renal/: Yes: WNL Musculoskeletal: Yes: Joint Swelling, Muscle Pain Extremities: Yes: WNL Edema: Yes Peripheral Pulses WNL: Yes Integumentary: Yes: WNL Neurological: Yes: WNL, Alert, Oriented ...Motor Strength: WNL Psychiatric: Yes: WNL, Alert, Oriented Labs: CBC, BMP 11/26/19 05:40 11/26/19 05:40 Imaging - Results Chest X-ray: Report Reviewed, Image Reviewed Cat Scan: Report Reviewed, Image Reviewed Problem List - Problems (1) Lung mass Code(s): R91.8 - OTHER NONSPECIFIC ABNORMAL FINDING OF LUNG FIELD (2) Adrenal nodule Code(s): E27.8 - OTHER SPECIFIED DISORDERS OF ADRENAL GLAND (3) GERD (gastroesophageal reflux disease) Code(s): K21.9 - GASTRO-ESOPHAGEAL REFLUX DISEASE WITHOUT ESOPHAGITIS (4) HLD (hyperlipidemia) Code(s): E78.5 - HYPERLIPIDEMIA, UNSPECIFIED (5) HTN (hypertension) Code(s): I10 - ESSENTIAL (PRIMARY) HYPERTENSION (6) Epigastric abdominal pain Code(s): R10.13 - EPIGASTRIC PAIN (7) Generalized weakness Code(s): R53.1 - WEAKNESS (8) Status post fall Code(s): Z91.81 - HISTORY OF FALLING (9) Syncope Code(s): R55 - SYNCOPE AND COLLAPSE Qualifiers: Syncope type: unspecified Qualified Code(s): R55 - Syncope and collapse Assessment/Plan I discussed the results of the CT chest with the patient. Informed her that due to her smoking and the characteristics of her lung mass it is very important to have a comprehensive workup. I suggested having a PET scan and then if needed a biopsy procedure may be needed. I did reach out and discussed the findings with her clinic attending. PET imaging will be arranged after discharge as there is not PET imaging performed here. Smoking cessation discussed at length. O2 as needed Outpatient PFTs once she is stable. There is no Pulmonary contraindication for DC and to complete her workup as an outpatient Thank you. Dr Higginbotham
--- NOTE | 2019-11-26 17:08 | PN ---
Physical Exam: SUBJECTIVE: Patient seen and examined at bedside. She says she is unable to walk 2/2 RIGHT ankle pain. This pain has been present since fallMonday. Prev x ray showed only soft tissue swelling. Will f/u with CT. She denies ACE, numbness/tingling, vision changes, SOB and CP. OBJECTIVE: Vital Signs Temp Pulse Resp BP Pulse Ox 98.3 F 83 18 143/70 96 11/26/19 13:00 11/26/19 09:00 11/26/19 13:00 11/26/19 13:00 11/26/19 10:00 HEAD: NCAT EYES: DELILAH, EOMI, conjunctiva clear. ENT: Ears normal, nares patent, oropharynx clear without exudates. Moist mucous membranes. NECK: Normal range of motion, supple without lymphadenopathy, JVD, or masses. LUNGS: CTAB. No wheezes, and no crackles. No accessory muscle use. HEART: RRR s1 s2 ABDOMEN: Soft, BS present in all 4 quadrants, non-distended, no JVD, MUSCULOSKELETAL: No bony deformities or tenderness. No CVA tenderness. UPPER EXTREMITIES: 2+ pulses, warm, well-perfused. No cyanosis. No clubbing. No peripheral edema. LOWER EXTREMITIES: Tender to palpation at RIGHT ANKLE but FROM. 2+ pulses, warm , well-perfused. No calf tenderness. No peripheral edema. NEUROLOGICAL: No focal deficits. Cranial nerves II-XII intact. Normal speech. Gait not appreciated. PSYCHIATRIC: Cooperative. Good eye contact. Appropriate mood and affect. SKIN: Warm, dry, normal turgor, no rashes or lesions noted, normal capillary refill. Laboratory Results - last 24 hr 11/25/19 11/26/19 11/26/19 21:39 05:40 05:40 WBC 6.7 RBC 3.67 Hgb 12.0 Hct 34.9 MCV 94.9 MCH 32.7 MCHC 34.4 RDW 13.7 Plt Count 193 MPV 9.3 Sodium 140 Potassium 3.7 Chloride 108 H Carbon Dioxide 26 Anion Gap 6 L BUN 9.4 Creatinine 0.7 Est GFR (CKD-EPI)AfAm 92.21 Est GFR (CKD-EPI)NonAf 79.56 POC Glucometer 124 Random Glucose 114 H Calcium 8.5 Phosphorus 2.8 Magnesium 2.1 Total Bilirubin 1.1 H AST 22 ALT 34 Alkaline Phosphatase 63 Total Protein 5.9 L Albumin 3.4 TSH 6.89 H Thyroxine (T4) 4.3 L 11/26/19 05:56 WBC RBC Hgb Hct MCV MCH MCHC RDW Plt Count MPV Sodium Potassium Chloride Carbon Dioxide Anion Gap BUN Creatinine Est GFR (CKD-EPI)AfAm Est GFR (CKD-EPI)NonAf POC Glucometer 114 Random Glucose Calcium Phosphorus Magnesium Total Bilirubin AST ALT Alkaline Phosphatase Total Protein Albumin TSH Thyroxine (T4) Active Medications Generic Name Dose Route Start Last Admin Trade Name Freq PRN Reason Stop Dose Admin Acetaminophen 650 mg 11/26/19 09:04 11/26/19 09:34 Tylenol - PO 650 mg Q6H PRN Administration Fever Or Pain Amlodipine Besylate 5 mg 11/26/19 10:00 11/26/19 09:15 Norvasc - PO 5 mg DAILY [facility] Administration Gabapentin 300 mg 11/25/19 22:00 11/26/19 09:15 Neurontin - PO 300 mg BID [facility] Administration Ceftriaxone Sodium 1 gm/ 50 mls @ 200 mls/hr 11/26/19 10:00 11/26/19 09:15 Dextrose IVPB 200 mls/hr DAILY [facility] Administration Protocol Lisinopril 20 mg 11/26/19 10:00 11/26/19 09:15 Prinivil PO 20 mg DAILY [facility] Administration Rosuvastatin Calcium 20 mg 11/25/19 22:00 11/25/19 21:44 Crestor - PO 20 mg Q2D@2200 [facility] Administration IMAGING LUNG MASS ON CT HEAD CT M[place] THYROID NODULES FRACTURE ON RLE CT CAROTID DOPP: Mild intimal thickening at the common carotid bifurcation, bilaterally with minimal plaque buildup on the LEFT and w/o evidence of hemodynamically significant stenosis, BL. ASSESSMENT/PLAN: 84 y/o female PMH HTN, HLD, and polymyalgia rheumatica brought in 2/2 unwitnessed fall at home and admitted to w/u syncope. Imaging demonstrated abnl GB with stones and poss cholycystitis; for HIDA today. Dopp as above. # Syncope - Echo NEG - CAROTID DOPP: Mild intimal thickening at the common carotid bifurcation, bilaterally with minimal plaque buildup on the LEFT and w/o evidence of hemodynamically significant stenosis, BL. - Moderately hypertensive; systolic 140s - Trop neg x 3 - Cardiology consulted: Suspect orthostatic hypo vs vagal, precipitated by prolonged seating-->rising, in elderly pt with suboptimal PO intake. Possibly exacerbated by post-prandial splanchnic vasodilation causing decreased cardiac return. (intense nausea with LH prodrome likely c/w vagal sx's). No clinical features suggest sz or malignant arrhythmia. No angina type sx's, trop neg x 3. non-acute ecg--no need for ischemia eval - Cont continuous cardiac monitoring - Orthostatics NEG # Cholecystitis - CT/sono findings c/w cholelithiasis/cholecystitis - Consult surgery - ID consulted - If HIDA negative can d/c antibiotics other collins will switch to rocephin/flagyl # UTI - Asymptomatic - UA: 2+ LE, trace ketones - Was administered cipro flagyl in ED - IVF # Polymyalgia rhematica - Gabapentin 300 mg PO BID # HTN - Cont. curent home regimen: Amlodepine/benazepril 10/20 mg PO QD # HLD - Cont. curent home regimen: Rosuvastatin 20 mg q48h PO HS # F/E/N - NS - Cont. to monitor - low sodium, low cholesterol/fat diet # DVT prophylaxis - Heparin SQ # Disposition - Admit to telemetry Stanislav Ernandez MD ATTENDING PHYSICIAN STATEMENT I saw and evaluated the patient. I reviewed the resident's note and discussed the case with the resident. I agree with the resident's findings and plan as documented. SUBJECTIVE: OBJECTIVE: ASSESSMENT AND PLAN:
--- NOTE | 2019-11-26 17:39 | PN ---
Progress Note (short form) - Note Progress Note: c/o RLE leg pain after fall- Vital Signs Period Temp Pulse Resp BP Sys/Willis Pulse Ox Last 24 Hr 98.0 F-99.0 F 81-90 16-18 116-147/59-84 96-96 cor-rrr lungs clear abd soft,nt ext no edema HIDA scan negative CBC, BMP 11/26/19 05:40 11/26/19 05:40 Microbiology 11/24/19 21:45 Urine - Urine - Catheterized Urine Culture - Final NO GROWTH OBTAINED 11/24/19 21:05 Blood - Peripheral Venous Blood Culture - Preliminary NO GROWTH OBTAINED AFTER 24 HOURS, INCUBATION TO CONTINUE FOR 4 DAYS. 11/24/19 21:05 Blood - Peripheral Venous Blood Culture - Preliminary NO GROWTH OBTAINED AFTER 24 HOURS, INCUBATION TO CONTINUE FOR 4 DAYS. a/p syncope/fall- management per hospitalist service can d/c antibiotics- no signs cholycystitis or UTI please call back if needed Problem List - Problems (1) Syncope Code(s): R55 - SYNCOPE AND COLLAPSE Qualifiers: Syncope type: unspecified Qualified Code(s): R55 - Syncope and collapse (2) Cholecystitis Code(s): K81.9 - CHOLECYSTITIS, UNSPECIFIED (3) Lung mass Code(s): R91.8 - OTHER NONSPECIFIC ABNORMAL FINDING OF LUNG FIELD
[2019-11-26] MEDS ORDERED: IBUPROFEN 600 MG TABLET (FP) PO PRN (18:29)
--- NOTE | 2019-11-26 20:28 | CONSULT ---
Consult - text type - Consultation Consultation Note: ORTHOPEDIC SURGERY CONSULTATION NOTE Department of Orthopedic Surgery HISTORY OF PRESENT ILLNESS Kaylie Linn is an 84 year old female who was admitted to [facility] for a syncopal fall. She has a past medical history significant for HTN, HLD, and GERD. The orthopedic service was consulted for evaluation of the right ankle. The injury occurred yesterday after a fall. The patient notes pain in the right ankle. Denies any other injuries. Denies numbness, tingling or other constitutional complaints. The patient is retired. Endorses tobacco use. Denies drug use, alcohol abuse. The patient lives with family and uses no assistive devices at baseline. Active Problems Problem Status Category Onset Adrenal nodule Acute Medical Lung mass Acute Medical Past Medical History Cardio/Vascular HTN,Hyperlipdemia Pulmonary Bronchitis Gastrointestinal GERD Social History Smoking history Current every day smoker Aproximately how many 4 cigarettes per day Hx Alcohol Use Yes: WINE WITH DINNER History of Substance Use None ADL Independent History of Recent Travel No Allergies Allergy/AdvReac Type Severity Reaction Status Date / Time Penicillins Allergy Unknown Verified 11/24/19 22:00 meperidine HCl [From Demerol] AdvReac Unknown Verified 11/24/19 22:00 Active Medications Generic Name Dose Route Start Last Admin Trade Name Freq PRN Reason Stop Dose Admin Acetaminophen 650 mg 11/26/19 09:04 11/26/19 09:34 Tylenol - PO 650 mg Q6H PRN Administration Fever Or Pain Amlodipine Besylate 5 mg 11/26/19 10:00 11/26/19 09:15 Norvasc - PO 5 mg DAILY [facility] Administration Gabapentin 300 mg 11/25/19 22:00 11/26/19 09:15 Neurontin - PO 300 mg BID [facility] Administration Ibuprofen 600 mg 11/26/19 18:29 Motrin - PO Q8H PRN PAIN LEVEL 1-5 Lisinopril 20 mg 11/26/19 10:00 11/26/19 09:15 Prinivil PO 20 mg DAILY [facility] Administration Rosuvastatin Calcium 20 mg 11/25/19 22:00 11/25/19 21:44 Crestor - PO 20 mg Q2D@2200 [facility] Administration Vital Signs (last) Temp Pulse Resp BP Pulse Ox 98.1 F 76 18 143/74 96 11/26/19 18:00 11/26/19 18:00 11/26/19 18:00 11/26/19 18:00 11/26/19 10:00 Intake and Output 11/24/19 11/25/19 11/26/19 23:59 23:59 23:59 Intake Total 818 800 Balance 818 800 Intake: IV 378 500 D5-1/2Ns - 1,000 ml @ 42 378 500 mls/hr IV ASDIR [facility]IS Rx#: [id number] IVPB 200 Oral 240 300 Other: Voiding Method Toilet Toilet Toilet # Unmeasured Voids Void 3 2 Bowel Movement Yes Yes # Bowel Movements 1 1 Weight 165 lb 165 lb Height 5 ft 4 in 5 ft 4 in Body Mass Index (BMI) 28.3 28.3 Weight Measurement Method Est/Stated by Patient Laboratory 11/26/19 05:40 11/26/19 05:40 FAMILY HISTORY Reviewed and noncontributory. REVIEW OF SYMPTOMS A twelve-point review of systems was performed and was negative except as noted in HPI. PHYSICAL EXAM Constitutional: Alert and oriented to person, place, and time. Appears well- developed and well-nourished. No acute distress, appropriate mood and affect. Right Upper Extremity: No tenderness to palpation. Full passive and active ROM, free from pain. Left Upper Extremity: No tenderness to palpation. Full passive and active ROM, free from pain. Right Lower Extremity: Swelling right ankle. Skin warm, dry, and intact; no lesions, rashes or ulcers noted. Muscle mass equal and symmetric to contralateral side. No atrophy noted. No masses or effusions noted. Tender to palpation at right ankle; nontender throughout rest of extremity. No cords or calf tenderness. No significant calf/ankle edema. Full passive and active ROM, free from pain. Joints stable with no pathologic laxity. EHL/TA/GS motor intact ; SILT distally; 2+ DP pulses; Cap refill brisk. Tone and reflexes normal. Left Lower Extremity: Skin warm, dry, and intact; no lesions, rashes or ulcers noted. Muscle mass equal and symmetric to contralateral side. No atrophy noted. No masses or effusions noted. No tenderness to palpation. No cords or calf tenderness. No significant calf/ankle edema. Full passive and active ROM, free from pain. Joints stable with no pathologic laxity. EHL/TA/GS motor intact; SILT distally; 2+ DP pulses; Cap refill brisk. Tone and reflexes normal. IMAGING I personally reviewed all radiographs, CT, and other imaging. They demonstrate an anterior inferior tibiofibular ligament avulsion fracture involving of the distal tibia. The fragment is 7 mm displaced. The ankle mortise appears intact. ASSESSMENT AND PLAN Kaylie Rey is an 84 year old female presenting status post fall with a right sided anterior inferior tibiofibular ligament avulsion fracture involving of the distal tibia. We have reviewed the imaging and clinical findings in detail, as well as their potential implications. After appropriate informed discussion, the patient was placed in a well-padded trilaminar splint. Patient was instructed regarding: non weight bearing on fractured side. signs and symptoms of compartment syndrome and need to seek immediate care should new onset numbness, tingling, or significantly increasing pain occur. maintain strict elevation above the level of the heart for the next 3-4 days. keeping the splint clean and dry. avoiding NSAID medications. All questions were answered. Thank you for involving our team in the care of this patient. Please have patient follow up in our office in 1 week. She has a follow up appointment scheduled for MondayDecember 02 at 1:30 PM. Please have the patient to call the office to confirm the appointment [phone].
[2019-11-27] MEDS ORDERED: LEVOTHYROXINE NA 25 MCG TABLET (FP) PO SCH (07:00)
--- NOTE | 2019-11-27 07:32 | PN ---
Progress Note (short form) - Note Progress Note: ORTHOPEDIC SURGERY PROGRESS NOTE Department of Orthopedic Surgery SUBJECTIVE No acute events overnight. No new complaints currently. Denies chest pain, shortness of breath, or calf pain. No nausea or vomiting. Tolerating oral intake. Pain well controlled. PHYSICAL EXAMINATION General: Alert, oriented, cooperative and no distress. Lower Extremity: Splint clean, dry and intact; Exposed skin intact, no lesions, rashes or ulcers noted. Muscle mass equal and symmetric to contralateral side. No atrophy noted. No masses or effusions noted. No tenderness to palpation. Full passive and active ROM toes and knee, free from pain. EHL motor intact; SILT distally; 2+ DP pulses; Cap refill brisk. DVT Exam: No evidence of DVT seen on physical exam; No cords or calf tenderness ; No significant calf/ankle edema. Intake & Output 11/25/19 11/26/19 11/27/19 23:59 23:59 23:59 Intake Total 818 1040 Balance 818 1040 Intake: IV 378 500 D5-1/2Ns - 1,000 ml @ 42 378 500 mls/hr IV ASDIR DENIS Rx#: [id number] IVPB 200 Oral 240 540 Other: Voiding Method Toilet Bedpan # Unmeasured Voids Void 3 1 2 Bowel Movement Yes No No # Bowel Movements 1 1 Weight 165 lb Height 5 ft 4 in Body Mass Index (BMI) 28.3 Active Medications Generic Name Dose Route Start Last Admin Trade Name Freq PRN Reason Stop Dose Admin Acetaminophen 650 mg 11/26/19 09:04 11/26/19 09:34 Tylenol - PO 650 mg Q6H PRN Administration Fever Or Pain Amlodipine Besylate 5 mg 11/26/19 10:00 11/26/19 09:15 Norvasc - PO 5 mg DAILY DENIS Administration Gabapentin 300 mg 11/25/19 22:00 11/26/19 21:03 Neurontin - PO 300 mg BID DENIS Administration Ibuprofen 600 mg 11/26/19 18:29 11/26/19 21:03 Motrin - PO 600 mg Q8H PRN Administration PAIN LEVEL 1-5 Levothyroxine Sodium 25 mcg 11/27/19 07:00 11/27/19 06:00 Synthroid - PO 25 mcg DAILY@0700 DENIS Administration Lisinopril 20 mg 11/26/19 10:00 11/26/19 09:15 Prinivil PO 20 mg DAILY DENIS Administration Rosuvastatin Calcium 20 mg 11/25/19 22:00 11/25/19 21:44 Crestor - PO 20 mg Q2D@2200 DENIS Administration Vital Signs (last) Temp Pulse Resp BP Pulse Ox 98.1 F 73 18 135/46 L 96 11/27/19 06:00 11/27/19 06:00 11/27/19 06:00 11/27/19 06:00 11/26/19 20:43 Laboratory 11/26/19 05:40 ASSESSMENT AND PLAN Kaylie Rey is an 84 year old female presenting status post fall with a right sided anterior inferior tibiofibular ligament avulsion fracture involving of the distal tibia. The patient is currently in a well-padded trilaminar splint and has elected nonoperative management at this time. We will obtain further imaging as an outpatient. Patient has undiagnosed lung mass that will require further workup by her medical team. - NWB RLE - Physical therapy - Pain control - DVT prophylaxis - Ice/Elevation right ankle - Elevate HOB, encourage oral intake - Appreciate medical management - Nutrition optimization - Decubitus precautions heel/sacrum - PT/OT; NWB RLE It is very important that she quit smoking. We discussed how smoking can interfere with bone healing. She expressed understanding and I suggested she further discuss this issue and the specifics of alternatives with her primary care physician. All questions were answered. Thank you for involving our team in the care of this patient. The patient has a follow up appointment scheduled for MondayDecember 02 at 1:30 PM. Please have the patient to call the office to confirm the appointment [phone].
[2019-11-27 08:16] LABS: ALBUMIN 3.5 g/dl (3.4-5.0); BILIRUBIN,TOTAL 1.5 mg/dL (0.2-1); BLOOD UREA NITROGEN 12.5 mg/dL (7-18); CALCIUM 8.7 mg/dL (8.5-10.1); CREATININE 0.7 mg/dL (0.55-1.3); POTASSIUM 3.7 mmol/L (3.5-5.1); TOT PROT 6.1 g/dl (6.4-8.2)
--- NOTE | 2019-11-27 08:46 | PN ---
Progress Note (short form) - Note Progress Note: Breathing feels stable. RLE cast placed last night. Intake & Output 11/24/19 11/25/19 11/26/19 11/27/19 23:59 23:59 23:59 23:59 Intake Total 818 1040 Balance 818 1040 Weight 165 lb 165 lb Last Vital Signs Temp Pulse Resp BP Pulse Ox 98.1 F 73 18 135/46 L 96 11/27/19 06:00 11/27/19 06:00 11/27/19 06:00 11/27/19 06:00 11/26/19 20:43 Active Medications Acetaminophen (Tylenol -) 650 mg PO Q6H PRN PRN Reason: Fever Or Pain Last Admin: 11/26/19 09:34 Dose: 650 mg Amlodipine Besylate (Norvasc -) 5 mg PO DAILY [facility] Last Admin: 11/26/19 09:15 Dose: 5 mg Gabapentin (Neurontin -) 300 mg PO BID [facility] Last Admin: 11/26/19 21:03 Dose: 300 mg Ibuprofen (Motrin -) 600 mg PO Q8H PRN PRN Reason: PAIN LEVEL 1-5 Last Admin: 11/26/19 21:03 Dose: 600 mg Levothyroxine Sodium (Synthroid -) 25 mcg PO DAILY@0700 [facility] Last Admin: 11/27/19 06:00 Dose: 25 mcg Lisinopril (Prinivil) 20 mg PO DAILY [facility] Last Admin: 11/26/19 09:15 Dose: 20 mg Rosuvastatin Calcium (Crestor -) 20 mg PO Q2D@2200 [facility] Last Admin: 11/25/19 21:44 Dose: 20 mg Constitutional: Yes: No Distress, Calm Eyes: Yes: Conjunctiva Clear, EOM Intact HENT: Yes: Atraumatic, Normocephalic Neck: Yes: Supple, Trachea Midline Cardiovascular: Yes: Regular Rate and Rhythm Respiratory: Yes: Cough, Diminished. No: Accessory Muscle Use, Rales, Rhonchi, SOB, SOB on Exertion, Stridor, Tachypnea, Wheezes ...Inspection: Yes: WNL ...Clubbing: No Gastrointestinal: Yes: Normal Bowel Sounds, Soft, Abdomen, Obese Renal/: Yes: WNL Musculoskeletal: Yes: Joint Swelling, Muscle Pain Extremities: Yes: RLE cast Edema: Yes Peripheral Pulses WNL: Yes Integumentary: Yes: WNL Neurological: Yes: WNL, Alert, Oriented ...Motor Strength: WNL Psychiatric: Yes: WNL, Alert, Oriented Labs: Laboratory Results - last 24 hr 11/27/19 06:15 Sodium 141 Potassium 3.7 Chloride 107 Carbon Dioxide 26 Anion Gap 8 BUN 12.5 Creatinine 0.7 Est GFR (CKD-EPI)AfAm 92.21 Est GFR (CKD-EPI)NonAf 79.56 Random Glucose 105 Calcium 8.7 Total Bilirubin 1.5 H AST 36 ALT 47 Alkaline Phosphatase 70 Total Protein 6.1 L Albumin 3.5 Problem List - Problems (1) Lung mass Code(s): R91.8 - OTHER NONSPECIFIC ABNORMAL FINDING OF LUNG FIELD (2) Adrenal nodule Code(s): E27.8 - OTHER SPECIFIED DISORDERS OF ADRENAL GLAND (3) GERD (gastroesophageal reflux disease) Code(s): K21.9 - GASTRO-ESOPHAGEAL REFLUX DISEASE WITHOUT ESOPHAGITIS (4) HLD (hyperlipidemia) Code(s): E78.5 - HYPERLIPIDEMIA, UNSPECIFIED (5) HTN (hypertension) Code(s): I10 - ESSENTIAL (PRIMARY) HYPERTENSION (6) Epigastric abdominal pain Code(s): R10.13 - EPIGASTRIC PAIN (7) Generalized weakness Code(s): R53.1 - WEAKNESS (8) Status post fall Code(s): Z91.81 - HISTORY OF FALLING (9) Syncope Code(s): R55 - SYNCOPE AND COLLAPSE Qualifiers: Syncope type: unspecified Qualified Code(s): R55 - Syncope and collapse Assessment/Plan I discussed the results of the CT chest with the patient. Informed her that due to her smoking and the characteristics of her lung mass it is very important to have a comprehensive workup. I suggested having a PET scan and then if needed a biopsy procedure may be needed. I did reach out and discussed the findings with her clinic attending. PET imaging will be arranged after discharge as there is not PET imaging performed here. Smoking cessation discussed at length. O2 as needed Outpatient PFTs once she is stable. There is no Pulmonary contraindication for DC and to complete her workup as an outpatient Dr Higginbotham Problem List - Problems (1) Lung mass Code(s): R91.8 - OTHER NONSPECIFIC ABNORMAL FINDING OF LUNG FIELD (2) Adrenal nodule Code(s): E27.8 - OTHER SPECIFIED DISORDERS OF ADRENAL GLAND (3) GERD (gastroesophageal reflux disease) Code(s): K21.9 - GASTRO-ESOPHAGEAL REFLUX DISEASE WITHOUT ESOPHAGITIS (4) HLD (hyperlipidemia) Code(s): E78.5 - HYPERLIPIDEMIA, UNSPECIFIED (5) HTN (hypertension) Code(s): I10 - ESSENTIAL (PRIMARY) HYPERTENSION (6) Epigastric abdominal pain Code(s): R10.13 - EPIGASTRIC PAIN (7) Generalized weakness Code(s): R53.1 - WEAKNESS (8) Status post fall Code(s): Z91.81 - HISTORY OF FALLING (9) Syncope Code(s): R55 - SYNCOPE AND COLLAPSE Qualifiers: Syncope type: unspecified Qualified Code(s): R55 - Syncope and collapse
[2019-11-27] MEDS: ACETAMINOPHEN 325 MG TABLET (FP) PO PRN (09:17)
[2019-11-27] MEDS: amLODIPine BESYLATE 5 MG TABLET (FP) PO SCH (09:17)
[2019-11-27] MEDS: GABAPENTIN 300 MG CAPSULE (FP) PO SCH (09:17)
[2019-11-27] MEDS: LISINOPRIL 20 MG TABLET (FP) PO SCH (09:23)
--- NOTE | 2019-11-27 10:16 | PN ---
Progress Note (short form) - Note Progress Note: SURGERY 84yo F was seen and examined at bedside. Pt states that her abd pain has completely resolved and that she wants to go home. Pt mostly complaining of pain in her Ankle due to her fracture. Pt denies n/v, fever, chills. Pt tolerating PO. Last Vital Signs Temp Pulse Resp BP Pulse Ox 97.7 F 81 16 130/63 96 11/27/19 09:30 11/27/19 09:30 11/27/19 09:30 11/27/19 09:30 11/27/19 09:30 CBC, BMP 11/26/19 05:40 11/27/19 06:15 PE: Gen: A&O X3 REsp: breathing comfortably Abd: soft, nontender, nondistended Problem List - Problems (1) Cholecystitis Assessment/Plan: Plan -at this time pt does not need any acute surgical intervention for her gallbladder, pt will need metastatic workup for her multiple lesions found during this admission. -please contact surgery team if any changes in pts condition. Pt discussed with Dr. Power who agrees with plan Code(s): K81.9 - CHOLECYSTITIS, UNSPECIFIED
--- NOTE | 2019-11-27 11:10 | PN ---
Progress Note (short form) - Note Progress Note: s: no chest pain, palps, dizziness, dyspnea Current Medications Acetaminophen (Tylenol -) 650 mg PO Q6H PRN PRN Reason: Fever Or Pain Last Admin: 11/27/19 09:17 Dose: 650 mg Amlodipine Besylate (Norvasc -) 5 mg PO DAILY [facility] Last Admin: 11/27/19 09:17 Dose: Not Given Gabapentin (Neurontin -) 300 mg PO BID [facility] Last Admin: 11/27/19 09:17 Dose: Not Given Ibuprofen (Motrin -) 600 mg PO Q8H PRN PRN Reason: PAIN LEVEL 1-5 Last Admin: 11/26/19 21:03 Dose: 600 mg Levothyroxine Sodium (Synthroid -) 25 mcg PO DAILY@0700 [facility] Last Admin: 11/27/19 06:00 Dose: 25 mcg Lisinopril (Prinivil) 20 mg PO DAILY [facility] Last Admin: 11/27/19 09:23 Dose: 20 mg Rosuvastatin Calcium (Crestor -) 20 mg PO Q2D@2200 [facility] Last Admin: 11/25/19 21:44 Dose: 20 mg Vital Signs Period Temp Pulse Resp BP Sys/Willis Pulse Ox Last 24 Hr 97.7 F-98.3 F 71-81 16-20 123-143/46-74 96-96 Constitutional: Yes: Well Nourished, No Distress Eyes: No: Sclera Icterus HENT: No: Nasal Congestion Neck: No: Decreased ROM Respiratory: Yes: CTA Bilaterally. No: Accessory Muscle Use, Rales, Wheezes Gastrointestinal: Yes: Normal Bowel Sounds. No: Distention, Hepatomegaly, Palpable Mass, Tenderness Cardiovascular: Yes: Regular Rate and Rhythm JVD: No Carotid Bruit: No PMI: Non-Displaced Heart Sounds: Yes: S1, S2. No: Gallop Murmur: No: Systolic Murmur, Diastolic Murmur Musculoskeletal: Yes: Other (No kyphosis) Extremities: No: Cool, Cyanosis Edema: No Peripheral Pulses: 2+ Left Carotid, 2+ Right Carotid, 2+ Left Doralis Pedis, 2+ Right Dorsalis Pedis Integumentary: No: Jaundice Neurological: Yes: Alert, Oriented (x3) Psychiatric: No: Agitated Assessment/Plan ECG: NSR, normal intervals/axis. ? old AWMI. no ST-Ts. no old tracing CXR: clear lungs/pleura CT head: report pending echo 11/2019 nl LV/RV function, mild AR, mild aortic sclerosis tele: NSR, artifact presyncope/fall vs syncope: -suspect orthostatic hypo vs vagal, precipitated by prolonged seating-->rising, in elderly pt with suboptimal PO intake. possibly exacerbated by post-prandial splanchnic vasodilation causing decreased cardiac return. (intense nausea with LH prodrome likely c/w vagal sx's). -no clinical features suggest sz or malignant arrhythmia - echo unremarkable - tele benign - orthostatics negative, echo unremarkable -no angina type sx's, trop neg x 3. non-acute ecg--no need for ischemia eval - dc tele HTN: -bp controlled -cont home meds HPL: -cont home meds lung mass - pulm following, plan for outpatient workup ankle fx - manage per ortho
--- NOTE | 2019-11-27 13:02 | CONSULT ---
Consult Consult Specialty:: Endocrine Referred by:: Melissa Landin MD Reason for Consultation:: hypothyroid/substernal goiter - History of Present Illness Chief Complaint: fell at home injured rt ankle History of Present Illness: 84 y/o woman with a PMHx of HTN, HLD, GERD. Who was admitted after a syncope, s/ p fall, generalized weakness, and epigastric pain. Patient was found on the floor at home.She was just going to sink at home when she felt diaphoretic,and then did not know what happend next.since admission found to have lung mass and substernal goiter.she denies history of thyroid disease,weight gain or dysphagia.she has felt tired,more often,and has dry skin,hair thinning. - Past Medical History Cardio/Vascular: Yes: HTN, Hyperlipdemia Pulmonary: Yes: Bronchitis. No: Asthma, Cancer, COPD, O2 Dependent, Pneumonia, Previously Intubated, Pulmonary Embolus, Pulmonary Fibrosis, Sleep Apnea Gastrointestinal: Yes: GERD ...: No - Alcohol/Substance Use Hx Alcohol Use: Yes (WINE WITH DINNER) History of Substance Use: reports: None - Smoking History Smoking history: Current every day smoker Aproximately how many cigarettes per day: 4 - Social History ADL: Independent History of Recent Travel: No Home Medications - Allergies Allergies/Adverse Reactions: Allergies Allergy/AdvReac Type Severity Reaction Status Date / Time Penicillins Allergy Unknown Verified 11/24/19 22:00 meperidine HCl [From Demerol] AdvReac Unknown Verified 11/24/19 22:00 - Home Medications Home Medications: Ambulatory Orders Rosuvastatin [Crestor -] 20 mg PO Q48H #30 tablet 01/28/19 Amlodipine Besylate/Benazepril [Amlodipine-Benazepril 5-20 mg] 10 - 20 each PO DAILY 11/24/19 Fluticasone Propionate [Flovent Diskus] 50 mcg IH DAILY 11/24/19 Gabapentin 300 mg PO BID 11/25/19 Review of Systems - Review of Systems Constitutional: reports: Weakness Eyes: reports: No Symptoms HENT: reports: No Symptoms Neck: reports: Swollen Glands Cardiovascular: reports: No Symptoms Respiratory: reports: SOB on Exertion Gastrointestinal: reports: Constipation Genitourinary: reports: No Symptoms Breasts: reports: No Symptoms Reported Musculoskeletal: reports: Muscle Pain, Muscle Cramps, Muscle Weakness Neurological: reports: Weakness Physical Exam Vital Signs: Vital Signs Temperature 97.7 F 11/27/19 09:30 Pulse Rate 81 11/27/19 09:30 Respiratory Rate 16 11/27/19 09:30 Blood Pressure 130/63 11/27/19 09:30 O2 Sat by Pulse Oximetry (%) 96 11/27/19 09:30 Constitutional: Yes: Calm Eyes: Yes: EOM Intact HENT: Yes: Normocephalic Neck: Yes: Trachea Midline, Thyromegaly Cardiovascular: Yes: Regular Rate and Rhythm Respiratory: Yes: CTA Bilaterally Gastrointestinal: Yes: Normal Bowel Sounds ...Rectal Exam: Yes: Deferred Renal/: Yes: WNL Musculoskeletal: Yes: Joint Swelling, Muscle Pain, Muscle Weakness Extremities: Yes: WNL Peripheral Pulses WNL: Yes Wound/Incision: Yes: Dressing Dry and Intact Neurological: Yes: Alert, Oriented Labs: CBC, BMP 11/26/19 05:40 11/27/19 06:15 Problem List - Problems (1) Adult onset hypothyroidism Problems reviewed: Yes Code(s): E03.8 - OTHER SPECIFIED HYPOTHYROIDISM (2) Adrenal nodule Problems reviewed: Yes Code(s): E27.8 - OTHER SPECIFIED DISORDERS OF ADRENAL GLAND (3) Lung mass Problems reviewed: Yes Code(s): R91.8 - OTHER NONSPECIFIC ABNORMAL FINDING OF LUNG FIELD (4) HLD (hyperlipidemia) Code(s): E78.5 - HYPERLIPIDEMIA, UNSPECIFIED (5) HTN (hypertension) Problems reviewed: Yes Code(s): I10 - ESSENTIAL (PRIMARY) HYPERTENSION (6) Cholecystitis Code(s): K81.9 - CHOLECYSTITIS, UNSPECIFIED Assessment/Plan Current Active Problems Hypothyroidism/substernal goiter Adrenal nodule (Acute) Lung mass (Acute) GERD (gastroesophageal reflux disease) (Chronic) HLD (hyperlipidemia) (Chronic) HTN (hypertension) (Chronic) Abnormal Lab Results 11/27/19 06:15 Total Bilirubin 1.5 H Total Protein 6.1 L Laboratory Tests 11/26/19 05:40 TSH 6.89 H Thyroxine (T4) 4.3 L Laboratory Tests 11/27/19 06:15 Sodium 141 Potassium 3.7 Chloride 107 Carbon Dioxide 26 Anion Gap 8 BUN 12.5 Creatinine 0.7 Est GFR (CKD-EPI)AfAm 92.21 Est GFR (CKD-EPI)NonAf 79.56 Random Glucose 105 plan: substernal goiter hypothyroidism synthroid 25mcg daily adrenal mass dexa suppresion test likely incidental finding lung mass suspicious for neoplasm/adrenal etiolog? pet scan thyroid sono op
--- NOTE | 2019-11-27 16:23 | PN ---
Teaching Attending Note Name of Resident: Stanislav Ernandez ATTENDING PHYSICIAN STATEMENT I saw and evaluated the patient. I reviewed the resident's note and discussed the case with the resident. I agree with the resident's findings and plan as documented. SUBJECTIVE: no pain,no fever or chills. no SOB OBJECTIVE: NAD Cv: RRR Lungs: CTAB Ext : No edma or erythemma. R foot and leg in a cast. able to move toes and has nl sensation . ASSESSMENT AND PLAN: 84 y/o lady with h/o HTN, GERD, and HLP who presented after a fall and was found to have multiple new findings Assessment: syncope/fall R ankle Fx L adrenal nodule R lung mass L thyroid goiter new diagnosis of hypothyroidism hepatosplenomegaly meningioma gall stones Cytstic changes of the ovaries Plan: - NWB on RLE - elevation of the leg - f/u with ortho - need f/u with endo for TFTS and dexa suppression test as w/u of the adrenal nodule . also for goiter w/u - lung mass bx and PET after f/u with pulm - cont synthroid - GI f/u for hepatosplenomegaly - f/u with sx fro gall stones - f/u with [employer] due to ovarian cysts - cont home meds. dc home with VNS. she refused rehab understanding the risk for falls and new fractures
[2019-11-27 16:46] VITALS: PULSE 86
[2019-11-27 16:50] VITALS: BP 140/68; TEMP 97.8
--- NOTE | 2019-11-27 17:07 | DS ---
Physical Exam: SUBJECTIVE: Patient seen and examined OBJECTIVE: Vital Signs Period Temp Pulse Resp BP Sys/Willis Pulse Ox Last 24 Hr 97.7 F-98.3 F 71-86 16-22 123-143/46-74 96-96 PHYSICAL EXAM GENERAL: The patient is awake, alert, and fully oriented, in no acute distress. HEAD: Normal with no signs of trauma. EYES: PERRL, extraocular movements intact, sclera anicteric, conjunctiva clear. ENT: Ears normal, nares patent, oropharynx clear without exudates, moist mucous membranes. NECK: Trachea midline, full range of motion, supple. LUNGS: Breath sounds equal, clear to auscultation bilaterally, no wheezes, no crackles, no accessory muscle use. HEART: Regular rate and rhythm, S1, S2 without murmur, rub or gallop. ABDOMEN: Soft, nontender, nondistended, normoactive bowel sounds, no guarding, no rebound, no hepatosplenomegaly, no masses. EXTREMITIES: 2+ pulses, warm, well-perfused, no edema. NEUROLOGICAL: Cranial nerves II through XII grossly intact. Normal speech, gait not observed. PSYCH: Normal mood, normal affect. SKIN: Warm, dry, normal turgor, no rashes or lesions noted. LABS Laboratory Results - last 24 hr 11/27/19 06:15 Sodium 141 Potassium 3.7 Chloride 107 Carbon Dioxide 26 Anion Gap 8 BUN 12.5 Creatinine 0.7 Est GFR (CKD-EPI)AfAm 92.21 Est GFR (CKD-EPI)NonAf 79.56 Random Glucose 105 Calcium 8.7 Total Bilirubin 1.5 H AST 36 ALT 47 Alkaline Phosphatase 70 Total Protein 6.1 L Albumin 3.5 HOSPITAL COURSE: Date of Admission:11/24/19 Date of Discharge: 11/27/19 Discharge Summary Problems reviewed: Yes Reason For Visit: URINARY TRACT INFECTION, SYNCOPE, THICKENING Current Active Problems Adrenal nodule (Acute) Adult onset hypothyroidism (Acute) Lung mass (Acute) Meningioma (Acute) GERD (gastroesophageal reflux disease) (Chronic) Goiter (Chronic) HLD (hyperlipidemia) (Chronic) HTN (hypertension) (Chronic) Hepatosplenomegaly (Chronic) Condition: Improved - Instructions Diet, Activity, Other Instructions: YOUR VISIT You came to the hospital because you experienced a fall. You were admitted to the hospital for care of this incident. With bed-rest and close monitoring you improved. Additional testing found inflammation of your gall bladder. There were also findings on head CT and chest CT for which you should see a neurologist and benefits director. Imaging showed that you have a joint avulsion on the RIGHT leg and you were seen by an orthopedic surgeon whom recommends not putting weight on this leg, resting it, and being reevaluated at the date below. While here, you were seen by a surgeon, assistant teacher primary and a neurologist. You can continue your care in the doctors' office outside of the hospital. You are now stable and may return home. MEDICATIONS Please continue to take your medications as prescribed. NEW MEDICATION Synthroid 25 mcg by mouth every day ADDITIONAL CARE Be sure to drink appropriate amounts of water and hydrate well. After sitting for some time, come to a standing position SLOWLY; count to 10 full seconds as you rise to help prevent future falls. Since you are having difficulty walking, you were assessed by physical therapy. It is recommended you continue physical therapy in the out-patient clinic. no weight baring on your R foot Please make an appointment to see your primary care provider, Dr. Garcia, 1 week from today. Please make an appointment to see a surgeon in 1 week. A referral has to Dr. Power has been provided. Please make an appointment to see a assistant teacher primary in 1 week. A referral has to Dr. Torres has been provided. Please make an appointment to see a benefits director in 1 week. A referral has to Dr. Higginbotham has been provided. Please make an appointment to have a PET scan performed and discuss the need for a lung biopsy. Once complete, please schedule an out-patient Pulmonary Function Test. It is VERY important that you stop smoking. Please make an appointment to see a neurologist in 1 week. A referral has to Dr. Mata has been provided. Please bring a copy of the CT scan of your head to further discuss what was found and future care. follow up on the meningioma is needed Please make an appointment to see an entry level accounting clerk 3 weeks from today to discuss your thyroid function. A referral to Dr. Castillo has been provided. Here, you will discuss the need for a dexamethasone suppresion test. follow omyour thyrpid tests and the enlarged thyroid gland. you might need biopsy See Dr. Parham from to evaluate enlarged liver and spleen Please be sure to go to your appointment with the orthopedic surgeon, Dr. Beltran. You have an appointment MondayDecember 02 at 1:30 PM. Please call the office to confirm the appointment . ADDITIONAL INFORMATION Please call [phone] or come directly to the emergency department if you experience unusual headache, vision change, shortness of breath, chest pain, numbness, tingling, loss of alertness/awareness, loss of function, unusual bleeding or any alarming symptoms. Referrals: José Miguel Power MD [Staff Physician] - 3 Weeks Murphy Mata MD [Staff Physician] - 1 Week David Garcia MD [Staff Physician] - 1 Week Migue Torres MD [Staff Physician] - 1 Week Laisha Parham DO [Staff Physician] - Rufino Castillo MD [Staff Physician] - 3 Weeks Chace Beltran DO [Staff Physician] - 12/02/19 1:30 pm Guerrero Higginbotham MD [Staff Physician] - 2 Weeks Disposition: HOME - Home Medications Comprehensive Discharge Medication List: Ambulatory Orders Rosuvastatin [Crestor -] 20 mg PO Q48H #30 tablet 01/28/19 Amlodipine Besylate/Benazepril [Amlodipine-Benazepril 5-20 mg] 10 - 20 each PO DAILY 11/24/19 Fluticasone Propionate [Flovent Diskus] 50 mcg IH DAILY 11/24/19 Gabapentin 300 mg PO BID 11/25/19 Levothyroxine [Synthroid -] 25 mcg PO DAILY #30 tablet 11/27/19 ATTENDING PHYSICIAN STATEMENT I saw and evaluated the patient. I reviewed the resident's note and discussed the case with the resident. I agree with the resident's findings and plan as documented. SUBJECTIVE: OBJECTIVE: ASSESSMENT AND PLAN:
== END 2019-11-27 17:51 | disposition home or self-care (01) | DRG 562 ==
LOC: JER 20:24 → JERBED 23:43 → J4S 11-25 04:26
PROVIDERS: ADMIT Internal Medicine; ATTEND Internal Medicine
DX: S82.301A Unspecified fracture of lower end of right tibia, initial encounter for closed fracture (principal); G93.6 Cerebral edema; G93.41 Metabolic encephalopathy; N39.0 Urinary tract infection, site not specified; D49.7 Neoplasm of unspecified behavior of endocrine glands and other parts of nervous system; K81.9 Cholecystitis, unspecified; M35.3 Polymyalgia rheumatica; D49.1 Neoplasm of unspecified behavior of respiratory system; R55 Syncope and collapse; K76.0 Fatty (change of) liver, not elsewhere classified; R16.2 Hepatomegaly with splenomegaly, not elsewhere classified; F17.210 Nicotine dependence, cigarettes, uncomplicated; E03.9 Hypothyroidism, unspecified; K21.9 Gastro-esophageal reflux disease without esophagitis; W19.XXXA Unspecified fall, initial encounter; Y93.9 Activity, unspecified; Y92.89 Other specified places as the place of occurrence of the external cause; Y99.9 Unspecified external cause status; E78.5 Hyperlipidemia, unspecified; R91.8 Other nonspecific abnormal finding of lung field
CPT/HCPCS: 36415; 70450-TC; 71045-TC-FY; 71250-TC; 72125-TC; 73610-TC-RT-FY; 73630-TC-RT-FY; 73700-TC-RT; 74177-TC; 76705-TC; 78226-TC; 80048; 80053; 80061; 81003; 82803; 82962; 83036; 83605; 83721; 83735; 84100; 84436; 84443; 84484; 85025; 85027; 87040; 87086; 87804; 93005; 93010; 93306-TC; 93880-TC; 97116-GP; 97161-GP; 99285-25; A9537; J0131; Q9967

== ENCOUNTER 2019-12-24 15:16 | Inpatient (IN) | payer OTHER, BC ==
[2019-12-23 14:01] VITALS: BMI 26.5
[2019-12-24 09:50] LABS: BASO % 0.7 % (0-2.0); EOS % 4.2 % (0-4.5); HEMATOCRIT 38.3 % (32.4-45.2); LYMPH % 27.6 % (8-40); MCH 32.1 pg (25.7-33.7); MCHC 33.9 g/dl (32.0-36.0); MEAN CELL VOLUME 94.9 fl (80-96); MEAN PLT VOLUME 9.2 fl (7.5-11.1); MONO % 9.9 % (3.8-10.2); NEUT % 57.6 % (42.8-82.8); PLATELET COUNT 191 K/MM3 (134-434); RBC 4.04 M/mm3 (3.60-5.2); RDW 13.3 % (11.6-15.6); WHITE BLOOD COUNT 4.4 K/mm3 (4.0-10.0)
[2019-12-24 10:24] LABS: INR 0.96 (0.83-1.09); PROTHROMBIN TIME (PATIENT) 11.3 SEC (9.7-13.0)
[~2019-12-24 15:16] MED LIST: ACETAMINOPHEN 325 MG TABLET (FP) PO ONE
[2019-12-24] MEDS ORDERED: oxyCODONE HCL 5 MG TABLET PO ONE (16:45)
[2019-12-24] MEDS ORDERED: ACETAMINOPHEN 325 MG TABLET (FP) PO ONE (16:45)
--- NOTE | 2019-12-24 17:32 | HP ---
CHIEF COMPLAINT: admitted for pneumothorax s/p right lung biopsy PCP: Dr. Emily Farfan HISTORY OF PRESENT ILLNESS: Patient is a 84 year old female with a significant past medical history syncope , avulsion fracture of the distal tibia, right sided lung nodule/mass, cholelithiasis, brain mass (meningioma?), multiple sclerotic foci in her bones, hypertension, hearing loss (bilateral), hyperlipidemia, fibromyalgia, gastric ulcer. Patient with a solitary pulmonary nodule 1.8 x 1.2 x 0.9cm RML mass with both solid and ground glass components. Patient referred to pulmonary speccialist and a tissue biopsy was done today through IR. Post procedure, patient developed a pneumothorax and a chest tube was inserted. Patient is currently not experiencing any chest pain, shortness of breath, abdominal pain, nausea, vomiting, diarrhea. admission/post op course was notable for: (1) pneumothorax with right chest tube (2) (3) Recent Travel: none PAST MEDICAL HISTORY: syncope avulsion fracture of the distal tibia right sided lung nodule/mass cholelithiasis brain mass (meningioma?) multiple sclerotic foci in her bones hypertension hearing loss (bilateral) hyperlipidemia fibromyalgia gastric ulcer GERD acute recurrent ethmoidal sinusitis 2016 carpal tunnel syndrome 2012 RML mass PAST SURGICAL HISTORY: hemorrhoidectomy 2013 melanoma right arm Social History: Smoking: denies Alcohol: occasional Drugs: denies Allergies Penicillins Allergy (Unknown, Verified 12/24/19 09:26) meperidine HCl [From Demerol] Adverse Reaction (Unknown, Verified 12/24/19 09:26 ) HOME MEDICATIONS: Home Medications Medication Instructions Recorded Rosuvastatin [Crestor -] 20 mg PO Q48H #30 tablet 01/28/19 Amlodipine Besylate/Benazepril 20 each PO DAILY 11/24/19 [Amlodipine-Benazepril 5-20 mg] Gabapentin 300 mg PO HS 11/25/19 Levothyroxine [Synthroid -] 25 mcg PO DAILY #30 tablet 11/27/19 PHYSICAL EXAMINATION Vital Signs - 24 hr 12/24/19 12/24/19 12/24/19 09:22 11:01 11:14 Temperature 97.5 F L Pulse Rate 59 L 67 Pulse Rate [ 67 Left Lower Arm] Respiratory 18 17 Rate Respiratory 18 Rate [Left Lower Arm] Blood Pressure 126/69 150/65 Blood Pressure 153/71 [Left Lower Arm ] O2 Sat by Pulse 100 100 Oximetry (%) O2 Sat by Pulse 100 Oximetry (%) [ Left Lower Arm] 12/24/19 12/24/19 12/24/19 11:24 11:30 12:15 Temperature 97.5 F L Pulse Rate 75 88 Pulse Rate [ 70 Left Lower Arm] Respiratory 20 20 Rate Respiratory 18 Rate [Left Lower Arm] Blood Pressure 167/74 154/76 Blood Pressure 167/74 [Left Lower Arm ] O2 Sat by Pulse 100 98 Oximetry (%) O2 Sat by Pulse 100 Oximetry (%) [ Left Lower Arm] 12/24/19 12/24/19 12/24/19 12:30 12:45 13:00 Temperature Pulse Rate 88 88 86 Pulse Rate [ Left Lower Arm] Respiratory 20 18 20 Rate Respiratory Rate [Left Lower Arm] Blood Pressure 146/76 143/70 144/70 Blood Pressure [Left Lower Arm ] O2 Sat by Pulse 98 97 99 Oximetry (%) O2 Sat by Pulse Oximetry (%) [ Left Lower Arm] 12/24/19 12/24/19 12/24/19 15:16 15:30 15:45 Temperature 98.0 F Pulse Rate 67 70 72 Pulse Rate [ Left Lower Arm] Respiratory 16 16 16 Rate Respiratory Rate [Left Lower Arm] Blood Pressure 109/64 125/51 L 103/77 Blood Pressure [Left Lower Arm ] O2 Sat by Pulse 100 100 100 Oximetry (%) O2 Sat by Pulse Oximetry (%) [ Left Lower Arm] 12/24/19 12/24/19 12/24/19 16:00 16:15 16:30 Temperature Pulse Rate 72 72 72 Pulse Rate [ Left Lower Arm] Respiratory 16 16 16 Rate Respiratory Rate [Left Lower Arm] Blood Pressure 123/54 L 120/74 116/74 Blood Pressure [Left Lower Arm ] O2 Sat by Pulse 100 100 100 Oximetry (%) O2 Sat by Pulse Oximetry (%) [ Left Lower Arm] 12/24/19 16:45 Temperature Pulse Rate 72 Pulse Rate [ Left Lower Arm] Respiratory 16 Rate Respiratory Rate [Left Lower Arm] Blood Pressure 114/77 Blood Pressure [Left Lower Arm ] O2 Sat by Pulse 100 Oximetry (%) O2 Sat by Pulse Oximetry (%) [ Left Lower Arm] GENERAL: Awake, alert, and fully oriented, in no acute distress. HEAD: Normal with no signs of trauma. EYES: Pupils equal, round and reactive to light, extraocular movements intact, sclera anicteric, conjunctiva clear. No lid lag. EARS, NOSE, THROAT: Ears normal, nares patent, oropharynx clear without exudates. Moist mucous membranes. NECK: Normal range of motion, supple without lymphadenopathy, JVD, or masses. LUNGS: right lung diminished, left lung clear. on 2 liters of nasal cannula with stable oxygen saturations HEART: Regular rate and rhythm ABDOMEN: Soft, nontender, not distended, normoactive bowel sounds, no guarding, no rebound, no masses. No hepatomegaly or splenomegaly. MUSCULOSKELETAL: Normal range of motion at all joints. No bony deformities or tenderness. No CVA tenderness. UPPER EXTREMITIES: 2+ pulses, warm, well-perfused. No cyanosis. No clubbing. No peripheral edema. LOWER EXTREMITIES: s/p right ankle fracture NEUROLOGICAL: Normal speech. PSYCHIATRIC: Cooperative. Good eye contact. Appropriate mood and affect. Laboratory Results - last 24 hr 12/24/19 12/24/19 08:39 08:39 WBC 4.4 RBC 4.04 Hgb 13.0 Hct 38.3 MCV 94.9 MCH 32.1 MCHC 33.9 RDW 13.3 Plt Count 191 MPV 9.2 Absolute Neuts (auto) 2.5 Neutrophils % 57.6 D Lymphocytes % 27.6 D Monocytes % 9.9 Eosinophils % 4.2 D Basophils % 0.7 Nucleated RBC % 0 PT with INR 11.30 INR 0.96 ASSESSMENT/PLAN: Problem List - Problem (1) Pneumothorax, right Assessment/Plan: s/p chest tube placement post right lung biopsy stable oxygen saturations on 2 liters monitor output of chest tube chest xray pending pulmonary consulted continue incentive spirometer Code(s): J93.9 - PNEUMOTHORAX, UNSPECIFIED (2) Cholelithiasis Assessment/Plan: currently asymptomatic. Code(s): K80.20 - CALCULUS OF GALLBLADDER W/O CHOLECYSTITIS W/O OBSTRUCTION (3) Hypothyroid Assessment/Plan: continue home synthroid Code(s): E03.9 - HYPOTHYROIDISM, UNSPECIFIED (4) Lung mass Code(s): R91.8 - OTHER NONSPECIFIC ABNORMAL FINDING OF LUNG FIELD (5) GERD (gastroesophageal reflux disease) Code(s): K21.9 - GASTRO-ESOPHAGEAL REFLUX DISEASE WITHOUT ESOPHAGITIS (6) HLD (hyperlipidemia) Assessment/Plan: continue home medications Code(s): E78.5 - HYPERLIPIDEMIA, UNSPECIFIED (7) HTN (hypertension) Assessment/Plan: on lisinopril, norvasc Code(s): I10 - ESSENTIAL (PRIMARY) HYPERTENSION (8) Tibia and fibula open fracture, right Assessment/Plan: s/p fall on 11/2019 that sustained a right sided anterior inferior tibiofibular ligament avulsion fracture involving of the distal tibia. Per ortho, patient elected non operative management. Continue right leg elevation avelina stockings NWB right lowe ext physical therapy pain management Code(s): S82.201B - UNSP FX SHAFT OF RIGHT TIBIA, INIT FOR OPN FX TYPE I/2; S82.401B - UNSP FRACTURE OF SHAFT OF R FIBULA, INIT FOR OPN FX TYPE I/2 (9) DVT prophylaxis Assessment/Plan: avelina stockings Code(s): Z29.9 - ENCOUNTER FOR PROPHYLACTIC MEASURES, UNSPECIFIED Visit type - Emergency Visit Emergency Visit: Yes Care time: The patient presented to the Emergency Department on the above date and was hospitalized for further evaluation of their emergent condition. - New Patient This patient is new to me today: Yes Date on this admission: 12/24/19 - Critical Care Critical Care patient: No
[2019-12-24] MEDS: oxyCODONE HCL 5 MG TABLET PO PRN (18:31)
[2019-12-24] MEDS: GABAPENTIN 300 MG CAPSULE PO SCH (22:22)
[2019-12-25] MEDS: oxyCODONE HCL 5 MG TABLET PO PRN (02:22)
[2019-12-25] MEDS: ACETAMINOPHEN 325 MG TABLET (FP) PO PRN ×3 (02:24→20:40)
[2019-12-25] MEDS: LEVOTHYROXINE NA 25 MCG TABLET (FP) PO SCH (06:11)
--- NOTE | 2019-12-25 07:41 | CON.PULM ---
Consult Consult Specialty:: PULM/CCM Referred by:: Hospitalist Reason for Consultation:: PTX - History of Present Illness Chief Complaint: PTX History of Present Illness: 84 M, known to me from the office. COPD due to active smoking. Found to have a right middle lobe 1.8 x 1.2 cm lung mass highly suspicious for lung CA. S/P CT guided lung biopsy and developed a PTX. Pigtail catheter decompression. Feels well this AM. CXR post pigtail: no PTX - History Source History Provided By: Patient Limitations to Obtaining History: No Limitations - Past Medical History Cardio/Vascular: Yes: HTN, Hyperlipdemia Pulmonary: Yes: Bronchitis. No: Asthma, Cancer, COPD, O2 Dependent, Pneumonia, Previously Intubated, Pulmonary Embolus, Pulmonary Fibrosis, Sleep Apnea Gastrointestinal: Yes: GERD ...: No - Alcohol/Substance Use Hx Alcohol Use: Yes (WINE WITH DINNER) History of Substance Use: reports: None - Smoking History Smoking history: Former smoker Have you smoked in the past 12 months: Yes Aproximately how many cigarettes per day: 4 If you are a former smoker, when did you quit?: quit 3 weeks ago - Social History ADL: Independent History of Recent Travel: No Home Medications - Allergies Allergies/Adverse Reactions: Allergies Allergy/AdvReac Type Severity Reaction Status Date / Time Penicillins Allergy Unknown Verified 12/24/19 09:26 meperidine HCl [From Demerol] AdvReac Unknown Verified 12/24/19 09:26 - Home Medications Home Medications: Ambulatory Orders Rosuvastatin [Crestor -] 20 mg PO Q48H #30 tablet 01/28/19 Amlodipine Besylate/Benazepril [Amlodipine-Benazepril 5-20 mg] 20 each PO DAILY 11/24/19 Gabapentin 300 mg PO HS 11/25/19 Levothyroxine [Synthroid -] 25 mcg PO DAILY #30 tablet 11/27/19 Review of Systems - Review of Systems Constitutional: reports: No Symptoms Eyes: reports: No Symptoms HENT: reports: No Symptoms Neck: reports: No Symptoms Cardiovascular: reports: Shortness of Breath. denies: Chest Pain, Edema, Palpitations Respiratory: reports: Cough. denies: Hemoptysis, Orthopnea, PND, Snoring, SOB, SOB on Exertion, Wheezing Gastrointestinal: reports: No Symptoms Genitourinary: reports: No Symptoms Breasts: reports: No Symptoms Reported Musculoskeletal: reports: No Symptoms Integumentary: reports: No Symptoms Neurological: reports: No Symptoms Endocrine: reports: No Symptoms Hematology/Lymphatic: reports: No Symptoms Psychiatric: reports: No Symptoms Physical Exam Vital Sings: Vital Signs Temperature 98.3 F 12/25/19 06:20 Pulse Rate 66 12/25/19 06:20 Respiratory Rate 20 12/25/19 06:20 Blood Pressure 112/55 L 12/25/19 06:20 O2 Sat by Pulse Oximetry (%) 100 12/24/19 22:00 Constitutional: Yes: No Distress Eyes: Yes: Conjunctiva Clear, EOM Intact HENT: Yes: Atraumatic, Normocephalic Neck: Yes: Supple, Trachea Midline Cardiovascular: Yes: Regular Rate and Rhythm Respiratory: Yes: Diminished, Other (Intact right pigtail ). No: Accessory Muscle Use, Cough, Rales, Rhonchi, SOB, SOB on Exertion, Stridor, Tachypnea, Wheezes ...Inspection: Yes: Other (intact right pigtail ) ...Clubbing: No Gastrointestinal: Yes: Normal Bowel Sounds, Soft Renal/: Yes: WNL Musculoskeletal: Yes: WNL Extremities: Yes: WNL Edema: No Peripheral Pulses WNL: Yes Integumentary: Yes: WNL Neurological: Yes: WNL, Alert, Oriented ...Motor Strength: WNL Psychiatric: Yes: WNL, Alert, Oriented Labs: CBC, BMP 12/24/19 08:39 Imaging - Results Chest X-ray: Report Reviewed, Image Reviewed Problem List - Problems (1) COPD (chronic obstructive pulmonary disease) Code(s): J44.9 - CHRONIC OBSTRUCTIVE PULMONARY DISEASE, UNSPECIFIED (2) Smoker Code(s): F17.200 - NICOTINE DEPENDENCE, UNSPECIFIED, UNCOMPLICATED (3) Pneumothorax, right Code(s): J93.9 - PNEUMOTHORAX, UNSPECIFIED (4) Lung mass Code(s): R91.8 - OTHER NONSPECIFIC ABNORMAL FINDING OF LUNG FIELD (5) Meningioma Code(s): D32.9 - BENIGN NEOPLASM OF MENINGES, UNSPECIFIED (6) GERD (gastroesophageal reflux disease) Code(s): K21.9 - GASTRO-ESOPHAGEAL REFLUX DISEASE WITHOUT ESOPHAGITIS (7) HLD (hyperlipidemia) Code(s): E78.5 - HYPERLIPIDEMIA, UNSPECIFIED (8) HTN (hypertension) Code(s): I10 - ESSENTIAL (PRIMARY) HYPERTENSION Assessment/Plan Follow CXR Supplemental O2 as needed Incentive Spirometry VTE prophylaxis No smoking Will follow Thank you. Dr Higginbotham
[2019-12-25] MEDS: amLODIPine BESYLATE 5 MG TABLET (FP) PO SCH (09:59)
[2019-12-25] MEDS: LISINOPRIL 20 MG TABLET (FP) PO SCH (09:59)
[2019-12-25] MEDS ORDERED: ROSUVASTATIN CA 20 MG TABLET (FP) PO SCH ×2 (10:00→22:00)
[2019-12-25] MEDS ORDERED: PATIENT'S OWN MEDICATION (NON-FORMULARY) (Amlodipine Besylate/Benazepril [Amlodipine-Benaz PO SCH (10:00)
--- NOTE | 2019-12-25 10:14 | PN ---
Physical Exam: SUBJECTIVE: Patient seen and examined at the bedside. feels better today, having some mild pain at surgical site with deep inspiration. no chest pain. OBJECTIVE: Patient is a 84 year old female with a significant past medical history syncope , avulsion fracture of the distal tibia, right sided lung nodule/mass, cholelithiasis, brain mass (meningioma?), multiple sclerotic foci in her bones, hypertension, hearing loss (bilateral), hyperlipidemia, fibromyalgia, gastric ulcer. Patient with a solitary pulmonary nodule 1.8 x 1.2 x 0.9cm RML mass with both solid and ground glass components. Patient referred to pulmonary speccialist and a tissue biopsy was done 12/24/2019 through IR. Post procedure, patient developed a pneumothorax and a chest tube was inserted. Patient is currently not experiencing any chest pain, shortness of breath, abdominal pain, nausea, vomiting, diarrhea. imaging chest xray 12/25/2019: no right pneumothorax, right base atelectasis and blunting of left angle. Vital Signs Period Temp Pulse Resp BP Sys/Willis Pulse Ox Last 24 Hr 97.5 F-98.3 F 20-88 14-20 103-167/51-82 97-100 GENERAL: Awake, alert, and fully oriented, in no acute distress. HEAD: Normal with no signs of trauma. EYES: Pupils equal, round and reactive to light, extraocular movements intact, sclera anicteric, conjunctiva clear. No lid lag. EARS, NOSE, THROAT: Ears normal, nares patent, oropharynx clear without exudates. Moist mucous membranes. NECK: Normal range of motion, supple without lymphadenopathy, JVD, or masses. LUNGS: right lung diminished, left lung clear. on 2 liters of nasal cannula with stable oxygen saturations HEART: Regular rate and rhythm ABDOMEN: Soft, nontender, not distended, normoactive bowel sounds, no guarding, no rebound, no masses. No hepatomegaly or splenomegaly. MUSCULOSKELETAL: Normal range of motion at all joints. No bony deformities or tenderness. No CVA tenderness. UPPER EXTREMITIES: 2+ pulses, warm, well-perfused. No cyanosis. No clubbing. No peripheral edema. LOWER EXTREMITIES: s/p right ankle fracture NEUROLOGICAL: Normal speech. PSYCHIATRIC: Cooperative. Good eye contact. Appropriate mood and affect. Laboratory Results - last 24 hr 12/24/19 08:39 PT with INR 11.30 INR 0.96 Active Medications Generic Name Dose Route Start Last Admin Trade Name Freq PRN Reason Stop Dose Admin Acetaminophen 650 mg 12/24/19 18:59 12/25/19 10:00 Tylenol - PO 650 mg Q6H PRN Administration PAIN LEVEL 4 - 6 Amlodipine Besylate 5 mg 12/25/19 10:00 12/25/19 09:59 Norvasc - PO 5 mg DAILY DENIS Administration Gabapentin 300 mg 12/24/19 22:00 12/24/19 22:22 Neurontin - PO 300 mg HS DENIS Administration Levothyroxine Sodium 25 mcg 12/25/19 07:00 12/25/19 06:11 Synthroid - PO 25 mcg DAILY@0700 DENIS Administration Lisinopril 20 mg 12/25/19 10:00 12/25/19 09:59 Prinivil PO 20 mg DAILY DENIS Administration Oxycodone HCl 5 mg 12/24/19 17:33 12/25/19 02:22 Roxicodone - PO 5 mg Q4H PRN Administration PAIN LEVEL 7 - 10 Rosuvastatin Calcium 20 mg 12/25/19 10:00 12/25/19 10:00 Crestor - PO Not Given Q48H DENIS ASSESSMENT/PLAN: Problem List - Problems (1) Pneumothorax, right Assessment/Plan: s/p chest tube placement post right lung biopsy on 12/24/2019, chest xray shows no right pneumothorax, right base atelectasis seen. stable oxygen saturations on 2 liters, wean off oxygen as toleated monitor output of chest tube, currently <20cc. pulmonary consulted and following continue incentive spirometer Code(s): J93.9 - PNEUMOTHORAX, UNSPECIFIED (2) Cholelithiasis Assessment/Plan: currently asymptomatic. Code(s): K80.20 - CALCULUS OF GALLBLADDER W/O CHOLECYSTITIS W/O OBSTRUCTION (3) Hypothyroid Assessment/Plan: continue home synthroid Code(s): E03.9 - HYPOTHYROIDISM, UNSPECIFIED (4) Lung mass Code(s): R91.8 - OTHER NONSPECIFIC ABNORMAL FINDING OF LUNG FIELD (5) GERD (gastroesophageal reflux disease) Code(s): K21.9 - GASTRO-ESOPHAGEAL REFLUX DISEASE WITHOUT ESOPHAGITIS (6) HLD (hyperlipidemia) Assessment/Plan: continue home medications Code(s): E78.5 - HYPERLIPIDEMIA, UNSPECIFIED (7) HTN (hypertension) Assessment/Plan: on lisinopril, norvasc Code(s): I10 - ESSENTIAL (PRIMARY) HYPERTENSION (8) Tibia and fibula open fracture, right Assessment/Plan: s/p fall on 11/2019 that sustained a right sided anterior inferior tibiofibular ligament avulsion fracture involving of the distal tibia. Per ortho, patient elected non operative management. Continue right leg elevation avelina stockings NWB right lowe ext physical therapy pain management Code(s): S82.201B - UNSP FX SHAFT OF RIGHT TIBIA, INIT FOR OPN FX TYPE I/2; S82.401B - UNSP FRACTURE OF SHAFT OF R FIBULA, INIT FOR OPN FX TYPE I/2 (9) DVT prophylaxis Assessment/Plan: avelina stockings Code(s): Z29.9 - ENCOUNTER FOR PROPHYLACTIC MEASURES, UNSPECIFIED Visit type - Emergency Visit Emergency Visit: Yes Care time: The patient presented to the Emergency Department on the above date and was hospitalized for further evaluation of their emergent condition. - New Patient This patient is new to me today: No - Critical Care Critical Care patient: No - Discharge Referral Referred to [facility] Med P.C[facility] No
[2019-12-25] MEDS ORDERED: WITCH HAZEL 50% (TUCKS) 40 PAD/JAR PAD TP ONE (10:30)
[2019-12-25] MEDS ORDERED: BISACODYL 10 MG SUPP.RECT RC ONE (10:30)
--- NOTE | 2019-12-25 14:38 | PATH ---
Surgical Pathology Report Patient Name: STEFF MARTINEZ Med. Rec. #: [id number] /Age/Gender: 1935 (Age: 84) / F Account: <[id number]> Location: AMBULATORY SURG Taken: 12/24/2019 Received: 12/24/2019 Reported: 12/25/2019 Physicians: René Antony M.D. Specimen(s) Received RIGHT LUNG BIOPSY Clinical History 84 year old smoker female with solitary right lung nodule Final Diagnosis LUNG, RIGHT, CT GUIDED CORE BIOPSY: BENIGN LUNG PARENCHYMA. NO MALIGNANCY IDENTIFIED. DEEPER LEVELS HAVE BEEN EXAMINED. Comment: Suggest clinical and radiologic correlation. Imaging findings of a right spiculated lung nodule/mass noted. If there is persistent clinical concern for malignancy, suggest repeat sampling, as warranted. Electronically Signed Laisha Montano M.D. Gross Description Received in formalin labeled "right lung biopsy," is a 0.5 x 0.3 x 0.1 cm aggregate of aguilera-brown soft tissue fragments. The formalin is filtered and the specimen is entirely submitted in one cassette. /12/24/2019 saudi/12/24/2019
[2019-12-25] MEDS ORDERED: PT OWN MED DRAWER 7, Y5N ONE (14:49)
[2019-12-25] MEDS ORDERED: WITCH HAZEL 50% (TUCKS) 40 PAD/JAR PAD TP PRN (16:16)
[2019-12-25] MEDS: PSYLLIUM 5.85 GM PACKET PO SCH (17:55)
[2019-12-25] MEDS ORDERED: PNEUMOC 13-VAL CONJ-DIP CRM/PF 0.5 ML DISP.SYRIN IM ONE (18:00)
[2019-12-25] MEDS: GABAPENTIN 300 MG CAPSULE PO SCH (21:35)
[2019-12-26] MEDS: LEVOTHYROXINE NA 25 MCG TABLET (FP) PO SCH (06:26)
[2019-12-26 07:54] LABS: BASO % 0.4 % (0-2.0); EOS % 2.7 % (0-4.5); HEMATOCRIT 36.5 % (32.4-45.2); HEMOGLOBIN 12.6 GM/dL (10.7-15.3); LYMPH % 28.4 % (8-40); MCH 32.2 pg (25.7-33.7); MCHC 34.6 g/dl (32.0-36.0); MEAN PLT VOLUME 9.2 fl (7.5-11.1); MONO % 9.3 % (3.8-10.2); NEUT % 59.2 % (42.8-82.8); PLATELET COUNT 186 K/MM3 (134-434); RBC 3.93 M/mm3 (3.60-5.2); RDW 13.2 % (11.6-15.6); WHITE BLOOD COUNT 5.3 K/mm3 (4.0-10.0)
[2019-12-26 08:00] LABS: ALBUMIN 3.7 g/dl (3.4-5.0); BILIRUBIN,TOTAL 1.4 mg/dL (0.2-1); BLOOD UREA NITROGEN 17.8 mg/dL (7-18); CALCIUM 8.8 mg/dL (8.5-10.1); CREATININE 0.7 mg/dL (0.55-1.3); TOT PROT 6.3 g/dl (6.4-8.2)
--- NOTE | 2019-12-26 08:43 | PN ---
Progress Note (short form) - Note Progress Note: Feels well this AM. Pigtail was removed last night and CXR reveals no PTX and minimal basilar atelectasis. Intake & Output 12/23/19 12/24/19 12/25/19 12/26/19 23:59 23:59 23:59 23:59 Intake Total 300 0 Output Total 400 318 Balance -400 -18 0 Weight 150 lb 150 lb Last Vital Signs Temp Pulse Resp BP Pulse Ox 97.4 F L 75 18 154/69 95 12/26/19 07:19 12/25/19 22:00 12/25/19 22:00 12/25/19 22:00 12/25/19 21:00 Active Medications Acetaminophen (Tylenol -) 650 mg PO Q6H PRN PRN Reason: PAIN LEVEL 4 - 6 Last Admin: 12/25/19 20:40 Dose: 650 mg Amlodipine Besylate (Norvasc -) 5 mg PO DAILY [facility] Last Admin: 12/25/19 09:59 Dose: 5 mg Gabapentin (Neurontin -) 300 mg PO HS [facility] Last Admin: 12/25/19 21:35 Dose: 300 mg Levothyroxine Sodium (Synthroid -) 25 mcg PO DAILY@0700 [facility] Last Admin: 12/26/19 06:26 Dose: 25 mcg Lisinopril (Prinivil) 20 mg PO DAILY [facility] Last Admin: 12/25/19 09:59 Dose: 20 mg Oxycodone HCl (Roxicodone -) 5 mg PO Q4H PRN PRN Reason: PAIN LEVEL 7 - 10 Last Admin: 12/25/19 02:22 Dose: 5 mg Psyllium Hydrophilic Mucilloid (Metamucil (Sugar-Free) -) 5.85 gm PO DAILY [facility] Last Admin: 12/25/19 17:55 Dose: 5.85 gm Rosuvastatin Calcium (Crestor -) 20 mg PO Q48H [facility] Last Admin: 12/25/19 21:35 Dose: 20 mg Witch Candelaria/Glycerin (Tucks Pads -) 1 pad TP PRN PRN PRN Reason: HEMORRHOIDS Constitutional: Yes: No Distress Eyes: Yes: Conjunctiva Clear, EOM Intact HENT: Yes: Atraumatic, Normocephalic Neck: Yes: Supple, Trachea Midline Cardiovascular: Yes: Regular Rate and Rhythm Respiratory: Yes: Diminished. No: Accessory Muscle Use, Cough, Rales, Rhonchi, SOB, SOB on Exertion, Stridor, Tachypnea, Wheezes ...Inspection: Yes: WNL ...Clubbing: No Gastrointestinal: Yes: Normal Bowel Sounds, Soft Renal/: Yes: WNL Musculoskeletal: Yes: WNL Extremities: Yes: WNL Edema: No Peripheral Pulses WNL: Yes Integumentary: Yes: WNL Neurological: Yes: WNL, Alert, Oriented ...Motor Strength: WNL Psychiatric: Yes: WNL, Alert, Oriented Labs: Laboratory Results - last 24 hr 12/26/19 12/26/19 06:55 06:55 WBC 5.3 RBC 3.93 Hgb 12.6 Hct 36.5 MCV 93.0 MCH 32.2 MCHC 34.6 RDW 13.2 Plt Count 186 MPV 9.2 Absolute Neuts (auto) 3.1 Neutrophils % 59.2 Lymphocytes % 28.4 Monocytes % 9.3 Eosinophils % 2.7 Basophils % 0.4 Nucleated RBC % 0 Sodium 141 Potassium 4.0 Chloride 109 H Carbon Dioxide 26 Anion Gap 7 L BUN 17.8 Creatinine 0.7 Est GFR (CKD-EPI)AfAm 92.21 Est GFR (CKD-EPI)NonAf 79.56 Random Glucose 104 Calcium 8.8 Total Bilirubin 1.4 H AST 22 ALT 37 Alkaline Phosphatase 79 Total Protein 6.3 L Albumin 3.7 Problem List - Problems (1) COPD (chronic obstructive pulmonary disease) Code(s): J44.9 - CHRONIC OBSTRUCTIVE PULMONARY DISEASE, UNSPECIFIED (2) Smoker Code(s): F17.200 - NICOTINE DEPENDENCE, UNSPECIFIED, UNCOMPLICATED (3) Pneumothorax, right Code(s): J93.9 - PNEUMOTHORAX, UNSPECIFIED (4) Lung mass Code(s): R91.8 - OTHER NONSPECIFIC ABNORMAL FINDING OF LUNG FIELD (5) Meningioma Code(s): D32.9 - BENIGN NEOPLASM OF MENINGES, UNSPECIFIED (6) GERD (gastroesophageal reflux disease) Code(s): K21.9 - GASTRO-ESOPHAGEAL REFLUX DISEASE WITHOUT ESOPHAGITIS (7) HLD (hyperlipidemia) Code(s): E78.5 - HYPERLIPIDEMIA, UNSPECIFIED (8) HTN (hypertension) Code(s): I10 - ESSENTIAL (PRIMARY) HYPERTENSION Assessment/Plan No smoking Incentive Spirometry There is no Pulmonary contraindication for DC Home Dr Higginbotham Problem List - Problems (1) COPD (chronic obstructive pulmonary disease) Code(s): J44.9 - CHRONIC OBSTRUCTIVE PULMONARY DISEASE, UNSPECIFIED (2) Smoker Code(s): F17.200 - NICOTINE DEPENDENCE, UNSPECIFIED, UNCOMPLICATED (3) Pneumothorax, right Code(s): J93.9 - PNEUMOTHORAX, UNSPECIFIED (4) Lung mass Code(s): R91.8 - OTHER NONSPECIFIC ABNORMAL FINDING OF LUNG FIELD (5) Meningioma Code(s): D32.9 - BENIGN NEOPLASM OF MENINGES, UNSPECIFIED (6) GERD (gastroesophageal reflux disease) Code(s): K21.9 - GASTRO-ESOPHAGEAL REFLUX DISEASE WITHOUT ESOPHAGITIS (7) HLD (hyperlipidemia) Code(s): E78.5 - HYPERLIPIDEMIA, UNSPECIFIED (8) HTN (hypertension) Code(s): I10 - ESSENTIAL (PRIMARY) HYPERTENSION
[2019-12-26] MEDS ORDERED: PT OWN MED DRAWER 7, Y5N ONE (09:29)
[2019-12-26] MEDS: LISINOPRIL 20 MG TABLET (FP) PO SCH (09:31)
[2019-12-26] MEDS: amLODIPine BESYLATE 5 MG TABLET (FP) PO SCH (09:31)
[2019-12-26] MEDS: PSYLLIUM 5.85 GM PACKET PO SCH (09:32)
--- NOTE | 2019-12-26 09:43 | DS ---
Physical Exam: SUBJECTIVE: Patient seen and examined at the bedside. Awake alert and tolerating room air. Wants to go home. denies any shortness of breath, denies any malaise or chest pain. Has a follow up appointment with her PCP next week. Refusing oxycodone and does not think she will need any medications for pain. Advised to take tylenol 650 as needed and also called in #6 pills of Tylenol/ codeine in case pain becomes severe. OBJECTIVE: Patient is a 84 year old female with a significant past medical history syncope , avulsion fracture of the distal tibia, right sided lung nodule/mass, cholelithiasis, brain mass (meningioma?), multiple sclerotic foci in her bones, hypertension, hearing loss (bilateral), hyperlipidemia, fibromyalgia, gastric ulcer. Patient with a solitary pulmonary nodule 1.8 x 1.2 x 0.9cm RML mass with both solid and ground glass components. Patient referred to patient care specialist and a tissue biopsy was done 12/24/2019 through IR. Post procedure, patient developed a pneumothorax and a chest tube was inserted. Pneumothorax now resolved and patient to be discharged home. resolved pneumothorax, airway patent, no issues or events overnight. discharge home. Vital Signs Period Temp Pulse Resp BP Sys/Willis Pulse Ox Last 24 Hr 97.4 F-98.2 F 69-82 18-20 127-154/45-69 95-98 PHYSICAL EXAM GENERAL: Awake, alert, and fully oriented, in no acute distress. HEAD: Normal with no signs of trauma. EYES: Pupils equal, round and reactive to light, extraocular movements intact, sclera anicteric, conjunctiva clear. No lid lag. EARS, NOSE, THROAT: Ears normal, nares patent, oropharynx clear without exudates. Moist mucous membranes. NECK: Normal range of motion, supple without lymphadenopathy, JVD, or masses. LUNGS: room air, stable. lungs clear to auscultation bilaterally. HEART: Regular rate and rhythm ABDOMEN: Soft, nontender, not distended, normoactive bowel sounds, no guarding, no rebound, no masses. No hepatomegaly or splenomegaly. MUSCULOSKELETAL: Normal range of motion at all joints. No bony deformities or tenderness. No CVA tenderness. UPPER EXTREMITIES: 2+ pulses, warm, well-perfused. No cyanosis. No clubbing. No peripheral edema. LOWER EXTREMITIES: s/p right ankle fracture NEUROLOGICAL: Normal speech. PSYCHIATRIC: Cooperative. Good eye contact. Appropriate mood and affect. LABS Laboratory Results - last 24 hr 12/26/19 12/26/19 06:55 06:55 WBC 5.3 RBC 3.93 Hgb 12.6 Hct 36.5 MCV 93.0 MCH 32.2 MCHC 34.6 RDW 13.2 Plt Count 186 MPV 9.2 Absolute Neuts (auto) 3.1 Neutrophils % 59.2 Lymphocytes % 28.4 Monocytes % 9.3 Eosinophils % 2.7 Basophils % 0.4 Nucleated RBC % 0 Sodium 141 Potassium 4.0 Chloride 109 H Carbon Dioxide 26 Anion Gap 7 L BUN 17.8 Creatinine 0.7 Est GFR (CKD-EPI)AfAm 92.21 Est GFR (CKD-EPI)NonAf 79.56 Random Glucose 104 Calcium 8.8 Total Bilirubin 1.4 H AST 22 ALT 37 Alkaline Phosphatase 79 Total Protein 6.3 L Albumin 3.7 HOSPITAL COURSE: Date of Admission:12/25/19 Date of Discharge: 12/26/19 Minutes to complete discharge: 45 Discharge Summary Problems reviewed: Yes Reason For Visit: LUNG MASS Current Active Problems COPD (chronic obstructive pulmonary disease) (Acute) Cholelithiasis (Acute) DVT prophylaxis (Acute) Hypothyroid (Acute) Pneumothorax, right (Acute) Smoker (Acute) Tibia and fibula open fracture, right (Acute) Condition: Improved - Instructions Diet, Activity, Other Instructions: IF YOU DEVELOP CHEST PAIN, SHORTNESS OF BREATH, PERSISTENT COUGH OR COUGHING UP BLOOD GO TO THE EMERGENCY DEPARTMENT. If you have discomfort or pain, take over the counter tylenon 650mg every 6 hours as needed. If you pain is severe, I have called in Tylenol with Codeine but do not exceed more than 2 doses per day. Please follow up with your primary care doctor. Thank you for allowing us to care for you. [facility] [phone] Disposition: HOME - Home Medications Comprehensive Discharge Medication List: Ambulatory Orders Rosuvastatin [Crestor -] 20 mg PO Q48H #30 tablet 01/28/19 Amlodipine Besylate/Benazepril [Amlodipine-Benazepril 5-20 mg] 20 each PO DAILY 11/24/19 Gabapentin 300 mg PO HS 11/25/19 Levothyroxine [Synthroid -] 25 mcg PO DAILY #30 tablet 11/27/19 Acetaminophen W/ Codeine #3 [Tylenol # 3 -] 1 tab PO Q4H #6 tablet MDD 2 Prescription Drug Monitoring Program (I-STOP) results: I-STOP reviewed and no issues identified Problem List - Problems (1) Pneumothorax, right Assessment/Plan: resolved Problems reviewed: Yes Code(s): J93.9 - PNEUMOTHORAX, UNSPECIFIED (2) Cholelithiasis Assessment/Plan: currently asymptomatic. Code(s): K80.20 - CALCULUS OF GALLBLADDER W/O CHOLECYSTITIS W/O OBSTRUCTION (3) Hypothyroid Assessment/Plan: continue home synthroid Problems reviewed: Yes Code(s): E03.9 - HYPOTHYROIDISM, UNSPECIFIED (4) Lung mass Assessment/Plan: s/p biopsy Problems reviewed: Yes Code(s): R91.8 - OTHER NONSPECIFIC ABNORMAL FINDING OF LUNG FIELD (5) GERD (gastroesophageal reflux disease) Problems reviewed: Yes Code(s): K21.9 - GASTRO-ESOPHAGEAL REFLUX DISEASE WITHOUT ESOPHAGITIS (6) HLD (hyperlipidemia) Assessment/Plan: outpatient monitoring with PCP Problems reviewed: Yes Code(s): E78.5 - HYPERLIPIDEMIA, UNSPECIFIED (7) HTN (hypertension) Assessment/Plan: on lisinopril, norvasc stable bp Problems reviewed: Yes Code(s): I10 - ESSENTIAL (PRIMARY) HYPERTENSION (8) Tibia and fibula open fracture, right Assessment/Plan: s/p fall on 11/2019 that sustained a right sided anterior inferior tibiofibular ligament avulsion fracture involving of the distal tibia. Per ortho, patient elected non operative management. Continue right leg elevation avelina stockings NWB right lower ext Problems reviewed: Yes Code(s): S82.201B - UNSP FX SHAFT OF RIGHT TIBIA, INIT FOR OPN FX TYPE I/2; S82.401B - UNSP FRACTURE OF SHAFT OF R FIBULA, INIT FOR OPN FX TYPE I/2 (9) DVT prophylaxis Assessment/Plan: avelina stockings Problems reviewed: Yes Code(s): Z29.9 - ENCOUNTER FOR PROPHYLACTIC MEASURES, UNSPECIFIED This patient is new to me today: No Emergency Visit: No Critical Care patient: No - Discharge Referral Referred to [facility] Med P.C.: No
[2019-12-26 10:52] VITALS: BP 130/66; PULSE 65; TEMP 97.9
== END 2019-12-26 12:30 | disposition home or self-care (01) | DRG 200 ==
LOC: SUATTDRO 15:16 → JASUSAT 15:16 → J8W 17:23 → JASUSAT 12-25 17:25 → J8W 12-25 17:27
PROVIDERS: ADMIT Internal Medicine; ATTEND Nurse Practitioner Family
PROC: 0BBC3ZX Excision of Right Upper Lung Lobe, Percutaneous Approach, Diagnostic (ICD-10-PCS; principal; 2019-12-24)
PROC: 0W9930Z Drainage of Right Pleural Cavity with Drainage Device, Percutaneous Approach (ICD-10-PCS; 2019-12-24)
DX: J95.811 Postprocedural pneumothorax (principal); S82.201A Unspecified fracture of shaft of right tibia, initial encounter for closed fracture; J98.11 Atelectasis; S82.401A Unspecified fracture of shaft of right fibula, initial encounter for closed fracture; Y83.9 Surgical procedure, unspecified as the cause of abnormal reaction of the patient, or of later complication, without mention of misadventure at the time of the procedure; I10 Essential (primary) hypertension; E78.5 Hyperlipidemia, unspecified; K21.9 Gastro-esophageal reflux disease without esophagitis; J44.9 Chronic obstructive pulmonary disease, unspecified; K80.20 Calculus of gallbladder without cholecystitis without obstruction; E03.9 Hypothyroidism, unspecified; R91.8 Other nonspecific abnormal finding of lung field; F17.210 Nicotine dependence, cigarettes, uncomplicated; W19.XXXA Unspecified fall, initial encounter; Y93.9 Activity, unspecified; Y92.89 Other specified places as the place of occurrence of the external cause; Y99.9 Unspecified external cause status
CPT/HCPCS: 32405; 32557; 36415; 71045-TC-FY; 76098-TC-FY; 76380-TC; 77012-TC; 80053; 85025; 85610; 87899; 90670; 94010; 94761; C1729; C1769

== ENCOUNTER 2022-05-18 10:46 | Emergency (ER) | payer OTHER, BC ==
[2022-05-18 10:52] VITALS: BP 150/77; PULSE 73; TEMP 98.4; BMI 23.9
== END 2022-05-18 13:26 | disposition home or self-care (01) ==
LOC: FER 10:46
DX: I80.01 Phlebitis and thrombophlebitis of superficial vessels of right lower extremity (principal)
CPT/HCPCS: 93971-TC; 99284-25